=== PATIENT | female | born 1965 | race Caucasian/White ===

== ENCOUNTER 2020-02-11 08:41 | Outpatient (REF) | payer OTHER, SELFPAY | END 2020-02-11 08:42 | disposition home or self-care (01) | LOC: HO.HMGCLDS 08:41 | PROVIDERS: PCP Internal Medicine; Visit Provider Internal Medicine | DX: Z20.828 Contact with and (suspected) exposure to other viral communicable diseases (principal) | CPT/HCPCS: 87635 ==

== ENCOUNTER → 2020-02-19 12:40 | Outpatient (BNVA) | payer OTHER, SELFPAY | PROVIDERS: PCP Internal Medicine; Referring Provider Internal Medicine; Visit Provider Physician Assistant | DX: Z76.89 Persons encountering health services in other specified circumstances (principal) ==

== ENCOUNTER → 2020-03-22 08:13 | Outpatient (BNVA) | payer OTHER, SELFPAY | PROVIDERS: Visit Provider Dietitian, Registered | DX: Z76.89 Persons encountering health services in other specified circumstances (principal) ==

== ENCOUNTER 2020-04-01 15:41 | Outpatient (REF) | payer OTHER, SELFPAY | END 2020-04-01 15:42 | disposition home or self-care (01) | LOC: HO.LAB 15:41 | PROVIDERS: Visit Provider Internal Medicine | DX: Z20.828 Contact with and (suspected) exposure to other viral communicable diseases (principal) | CPT/HCPCS: C9803; U0003 ==

== ENCOUNTER 2020-06-24 08:35 | Outpatient (REF) | payer OTHER, SELFPAY | END 2020-06-24 08:36 | disposition home or self-care (01) | LOC: HO.LAB 08:35 | PROVIDERS: Visit Provider Internal Medicine | DX: Z20.822 Contact with and (suspected) exposure to COVID-19 (principal) | CPT/HCPCS: 36415; C9803; U0003; U0005 ==

== ENCOUNTER 2020-09-05 07:57 | Outpatient (REF) | payer OTHER, SELFPAY ==
--- NOTE | ~2020-09-05 | XR_ITS ---
EXAMINATION: BILATERAL AP KNEE AND LEFT KNEE 2 VIEWS. CLINICAL INFORMATION: Knee pain. COMPARISON: None TECHNIQUE: Left knee and bilateral AP knee standing 08/16/2016 FINDINGS: AP BILATERAL KNEE: There is severe loss of medial and lateral compartment joint space with moderate periarticular spurring lateral compartment left knee. Mild loss of medial and lateral compartment right knee joint space seen. LEFT KNEE: There is mild loss of patellofemoral compartment joint space with moderate inferior and mild lateral periarticular spurring. There are no loose body seen. There is minimal suprapatellar joint effusion. No fracture or dislocation. No abnormal soft tissue swelling. XR/XR knee LT 2V IMPRESSION: Advanced degenerative changes medial and lateral compartment and mild patellofemoral compartment degenerative arthritic changes left knee. There is no loose bodies or joint effusion. Minimal loss of medial and lateral compartment joint space right knee.
--- NOTE | ~2020-09-05 | XR_ITS ---
EXAMINATION: BILATERAL AP KNEE AND LEFT KNEE 2 VIEWS. CLINICAL INFORMATION: Knee pain. COMPARISON: None TECHNIQUE: Left knee and bilateral AP knee standing 08/16/2016 FINDINGS: AP BILATERAL KNEE: There is severe loss of medial and lateral compartment joint space with moderate periarticular spurring lateral compartment left knee. Mild loss of medial and lateral compartment right knee joint space seen. LEFT KNEE: There is mild loss of patellofemoral compartment joint space with moderate inferior and mild lateral periarticular spurring. There are no loose body seen. There is minimal suprapatellar joint effusion. No fracture or dislocation. No abnormal soft tissue swelling. XR/XR knee standing BI IMPRESSION: Advanced degenerative changes medial and lateral compartment and mild patellofemoral compartment degenerative arthritic changes left knee. There is no loose bodies or joint effusion. Minimal loss of medial and lateral compartment joint space right knee.
== END 2020-09-05 07:58 | disposition home or self-care (01) ==
LOC: HO.HOSX 07:57
PROVIDERS: Visit Provider Orthopaedic Surgery
DX: M17.12 Unilateral primary osteoarthritis, left knee (principal); M21.062 Valgus deformity, not elsewhere classified, left knee; M25.562 Pain in left knee
CPT/HCPCS: 73560; 73565

== ENCOUNTER → 2020-10-12 08:02 | Outpatient (BNVA) | payer OTHER, SELFPAY | PROVIDERS: Visit Provider Orthopaedic Surgery | DX: Z01.812 Encounter for preprocedural laboratory examination (principal); Z01.810 Encounter for preprocedural cardiovascular examination; M17.11 Unilateral primary osteoarthritis, right knee ==

== ENCOUNTER → 2020-11-10 11:11 | Outpatient (BNVA) | payer OTHER, SELFPAY | PROVIDERS: PCP Internal Medicine; Visit Provider Physician Assistant ==

== ENCOUNTER 2020-11-11 10:00 | Outpatient (RCR) | payer OTHER, SELFPAY ==
--- NOTE | 2020-11-07 15:25 | MHC.PT.EP ---
[facility] [place] Office [place] Office [place] Office [address] Stephen Irwin [address] [phone] F: [phone] F: [phone] F: [phone] F: [phone] Physical Therapy Plan of Care Date of Evaluation: Date of Surgery: Diagnosis: unilateral primary osteoarthritis, left knee Assessment: 55 y/o F referred to PT for prehab for L TKA on 11/22/20. Pt complains of pain and difficulty with walking, squatting, bending down, getting up/down from floor, and navigating stairs. Examination shows decreased hip/knee strength, decreased L knee ROM 0-18-114, decreased HS length, impaired gait mechanics with significant genu valgum, and poor squat mechanics. Recommend PT 1x/week for 2 weeks to address impairments, and implement HEP. Pt only able to attend 1 visit prior to surgery. Frequency and Duration: The patient will be seen 1x/week for 2 weeks Short Term Goals: Alf Goals: 1 week: 1. I with HEP 2. Pt will be able to verbalize importance of PT exercises/icing and expectations of therapy pre and post-TKA Treatment Plan: Modalities to reduce pain, spasms and effusion. Manual therapy to restore motion and function. Therapeutic exercise to improve strength and flexibility. Neuromuscular re-education for posture and balance. Therapeutic activities to return to functional activities of daily living. Electronically signed by: Gloria marshall PT Please sign and return to therapist. Thank you for your referral.
--- NOTE | 2020-11-11 11:16 | MHC.PT.DC ---
[facility] [place] Office [place] Office [place] Office [address] Stephen Irwin [address] [phone] F: [phone] F: [phone] F: [phone] F: [phone] Physical Therapy Discharge Report Diagnosis: unilateral primary osteoarthritis, left knee Date of Surgery: L TKA 11/22/20 Date of Evaluation: 11/07/20 Date of Discharge: 11/11/20 Treatments to Date: 2 Cancellations to Date: 0 No Shows to Date: 0 Discharge Status: Independent with HEP Discharge Summary: Reviewed HEP from initial evaluation and added a few more quad/hip exercises. Pt with good understanding of HEP and will perform every other day until surgery. Reviewed ice and stair management following surgery and pt with no further questions. Electronically signed by: Gloria Irving PT Please sign and return to therapist. Thank you for your referral.
== END 2020-11-11 11:17 | disposition home or self-care (01) ==
LOC: HO.PTCHIC 10:00
PROVIDERS: PCP Internal Medicine; Visit Provider Orthopaedic Surgery
DX: M17.12 Unilateral primary osteoarthritis, left knee (principal)
CPT/HCPCS: 97110; 97161

== ENCOUNTER 2020-11-22 07:11 | Inpatient (IN) | payer OTHER, SELFPAY ==
--- NOTE | 2020-10-13 07:55 | ECG_ITS ---
Test Reason : PREOP Z01.810 Blood Pressure : / mmHG Vent. Rate : 062 BPM Atrial Rate : 062 BPM P-R Int : 140 ms QRS Dur : 092 ms QT Int : 394 ms P-R-T Axes : 052 039 044 degrees QTc Int : 399 ms Normal sinus rhythm with sinus arrhythmia Normal ECG When compared with ECG of 03-AUG-2015 11:14, T wave amplitude has decreased in Lateral leads Referred By: Zohaib West Electronically Signed By:MACARENA BOLANOS
[2020-10-13 09:21] LABS: MANUAL DIFF FLAG NO
[2020-10-13 09:26] LABS: White Blood Count 5.9 X10*3/uL (4.8-10.8)
[2020-10-13 09:27] LABS: Basophils Absolute Auto 0.1 X10*3/uL (0.0-0.2); Basophils Percent Auto 1.2 % (0-2); Eosinophils Absolute Auto 0.2 X10*3/uL (0.0-0.4); Eosinophils Percent Auto 3.2 % (0-4); Hematocrit 41.8 % (37-47); Hemoglobin 12.8 g/dl (12.0-16.0); Imm Gran Abs Auto 0.01 X10*3/uL (0.00-0.03); Imm Gran Pct Auto 0.2 % (0.0-0.4); Lymphocytes Absolute Auto 1.9 X10*3/uL (1.2-4.9); Lymphocytes Percent Auto 31.1 % (20-40); Mean Corpuscular HGB Conc 30.6 g/dl (31.0-35.0); Mean Corpuscular Hemoglobin 28.8 pg (27.0-33.0); Mean Corpuscular Volume 94.1 fL (80-98); Mean Platelet Volume 10.7 fL (9.4-12.3); Monocytes Absolute Auto 0.5 X10*3/uL (0.1-1.2); Monocytes Percent Auto 7.7 % (2-11); Neutrophils Absolute Auto 3.4 X10*3/uL (2.0-8.3); Neutrophils Percent Auto 56.6 % (45-73); Platelet Count 276 X10*3/uL (160-400); Red Blood Count 4.44 X10*6/uL (4.20-5.50); Red Cell Distribution Width 13.2 % (11.0-16.0)
[2020-10-13 09:49] LABS: Anion Gap 10 (12-20); Blood Urea Nitrogen 11 mg/dL (9-16); Carbon Dioxide 27 mmol/L (22-29); Chloride 107 mmol/L (96-108); Estimated Glomerular Filt Rate > 60; Glucose Random 67 mg/dL (60-115); Potassium 4.3 mmol/L (3.3-5.1); Sodium 140 mmol/L (135-145)
--- NOTE | 2020-11-10 11:52 | P.CONAN_ITS ---
Documented by User: Melly Rodriguez 11/21/20 08:21 HPI - Anesthesia Eval Consult details Narrative: 55yo F for Left Knee Replacement Total PCP cleared [facility] Active Problems Active Problems: All Active Problems (Updated 11/01/20 @ 08:32 by Neena Padilla PA-C) Osteoarthritis of left knee (Acute) Internal derangement of left knee (Acute) Pre-op evaluation (Acute) Osteoarthritis of right knee (Acute) Physical exam, annual (Acute) S/P gastric bypass (Acute) BMI 30.0-30.9,adult (Acute) Obesity (BMI 30-39.9) (Acute) Malabsorption due to intolerance, not elsewhere classified (Acute) Past Medical History Medical History Anastomotic ulcer BMI 30.0-30.9,adult Bone spur of left foot COVID-19 vaccine series completed Cyst of left kidney Hematuria Malabsorption due to intolerance, not elsewhere classified Obesity (BMI 30-39.9) PONV (postoperative nausea and vomiting) Shingles Family History Family History Father Cataract Skin cancer Mother HTN (hypertension) Anxiety Depression Obesity Smoker Sister Breast cancer Brother No problems noted. Sister No problems noted. Sister No problems noted. Sister No problems noted. Sister No problems noted. Daughter No problems noted. Daughter No problems noted. Daughter No problems noted. Other Mental health disorder Family history of problems with anesthesia: No Surgical History Surgical History H/O arthroscopy of left knee H/O elbow surgery H/O tubal ligation H/O: hysterectomy S/P gastric bypass Fountain teeth extracted History of Problems with Anesthesia: No (PONV after gastric bypass) Social History Social History Housing: House Are you a primary nurse wound care to a significant other at home: No Do you presently have visiting nurse or other home services: No Alcohol intake: never Patient Tobacco Use Status: Never used Tobacco Second Hand Smoke Exposure: No Use of substances other than those prescribed or required for medical reasons: No Have you been hit, kicked, punched, or otherwise hurt by someone within the past year? 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 Narrative Narrative: No recent illness No CP/SOB with >4 mets Meds Allergies Allergy/AdvReac Type Severity Reaction Status Date / Time Iodinated Contrast Media Allergy Intermediate HIVES Verified 11/10/20 11:51 [IV CONTRAST] iodine [IODINE] Allergy Intermediate SKIN RASH, Verified 11/10/20 11:51 redness, welts, redness IVP Dye Allergy Unknown redness, Verified 11/10/20 11:51 welts Home Medications Medication Instructions Recorded Confirmed Last Taken Type cholecalciferol (vitamin D3) 50 100 mcg PO DAILY 02/19/20 11/09/20 Unknown History mcg (2,000 unit) tablet aawzduaa-[id number]-[id number] 45 mg-folic 1 cap PO DAILY 02/19/20 11/09/20 Unknown History acid 800 mcg-vit K 120 mcg capsule pantoprazole 40 mg tablet,delayed 40 mg PO BID tab 06/01/20 11/09/20 Unknown History release Exam Exam Date and Time: November 10, 2020 1152 Pertinent Lab Results Pertinent Lab Results: Lab Results 10/13/20 10/13/20 11/10/20 Range/Units 07:50 07:50 12:50 WBC 5.9 (4.8-10.8) X10*3/uL RBC 4.44 (4.20-5.50) X10*6/uL Hgb 12.8 (12.0-16.0) g/dl Hct 41.8 (37-47) % MCV 94.1 (80-98) fL MCH 28.8 (27.0-33.0) pg MCHC 30.6 L (31.0-35.0) g/dl RDW 13.2 (11.0-16.0) % Plt Count 276 (160-400) X10*3/uL MPV 10.7 (9.4-12.3) fL Immature Gran % (Auto) 0.2 (0.0-0.4) % Neut % (Auto) 56.6 (45-73) % Lymph % (Auto) 31.1 (20-40) % [place] % (Auto) 7.7 (2-11) % Eos % (Auto) 3.2 (0-4) % Baso % (Auto) 1.2 (0-2) % Lymph # (Auto) 1.9 (1.2-4.9) X10*3/uL [place] # (Auto) 0.5 (0.1-1.2) X10*3/uL Eos # (Auto) 0.2 (0.0-0.4) X10*3/uL Baso # (Auto) 0.1 (0.0-0.2) X10*3/uL Abs Immat Gran (auto) 0.01 (0.00-0.03) X10*3/uL Absolute Neuts (auto) 3.4 (2.0-8.3) X10*3/uL Absolute Nucleated RBC 0.000 (0.0-0.012) X10*3/uL Nucleated RBC % (auto) 0.0 (0.0-0.2) /100WBC Sodium 140 (135-145) mmol/L Potassium 4.3 (3.3-5.1) mmol/L Chloride 107 (96-108) mmol/L Carbon Dioxide 27 (22-29) mmol/L Anion Gap 10 L (12-20) BUN 11 (9-16) mg/dL Creatinine 0.67 (0.5-1.4) mg/dL Estim Creat Clear Calc TNP Estimated GFR > 60 Random Glucose 67 (60-115) mg/dL Calcium 9.0 (8.4-10.2) mg/dL Nasal Screen MRSA (PCR) (Negative) Nasal S. aureus Screen (Negative) Nasal MRSA/S.aureus Interp Blood Type A Positive Antibody Screen NEGATIVE 11/10/20 Range/Units Unknown WBC (4.8-10.8) X10*3/uL RBC (4.20-5.50) X10*6/uL Hgb (12.0-16.0) g/dl Hct (37-47) % MCV (80-98) fL MCH (27.0-33.0) pg MCHC (31.0-35.0) g/dl RDW (11.0-16.0) % Plt Count (160-400) X10*3/uL MPV (9.4-12.3) fL Immature Gran % (Auto) (0.0-0.4) % Neut % (Auto) (45-73) % Lymph % (Auto) (20-40) % [place] % (Auto) (2-11) % Eos % (Auto) (0-4) % Baso % (Auto) (0-2) % Lymph # (Auto) (1.2-4.9) X10*3/uL [place] # (Auto) (0.1-1.2) X10*3/uL Eos # (Auto) (0.0-0.4) X10*3/uL Baso # (Auto) (0.0-0.2) X10*3/uL Abs Immat Gran (auto) (0.00-0.03) X10*3/uL Absolute Neuts (auto) (2.0-8.3) X10*3/uL Absolute Nucleated RBC (0.0-0.012) X10*3/uL Nucleated RBC % (auto) (0.0-0.2) /100WBC Sodium (135-145) mmol/L Potassium (3.3-5.1) mmol/L Chloride (96-108) mmol/L Carbon Dioxide (22-29) mmol/L Anion Gap (12-20) BUN (9-16) mg/dL Creatinine (0.5-1.4) mg/dL Estim Creat Clear Calc Estimated GFR Random Glucose (60-115) mg/dL Calcium (8.4-10.2) mg/dL Nasal Screen MRSA (PCR) NEGATIVE (Negative) Nasal S. aureus Screen NEGATIVE (Negative) Nasal MRSA/S.aureus Interp SEE NOTE Blood Type Antibody Screen Narrative Narrative: EKG 09/2020 Vent. Rate : 062 BPM Atrial Rate : 062 BPM P-R Int : 140 ms QRS Dur : 092 ms QT Int : 394 ms P-R-T Axes : 052 039 044 degrees QTc Int : 399 ms Normal sinus rhythm with sinus arrhythmia Normal ECG When compared with ECG of 03-AUG-2015 11:14, T wave amplitude has decreased in Lateral leads Airway Mallampati Class: II TM Dist: >3cm Neck ROM: Full Loose/Missing/Broken Teeth: Yes (Crowns throughout including #9, many missing) Heart: RRR Lungs: CTAB Assessment and Plan Assessment Anesthesia Assessment: Anesthesia Plan Discussed and PAT Visit Documented by User: Temo Celeste MD 11/22/20 08:16 PMFSH Past Medical History Medical History Anastomotic ulcer BMI 30.0-30.9,adult Bone spur of left foot COVID-19 vaccine series completed Cyst of left kidney Hematuria Malabsorption due to intolerance, not elsewhere classified Obesity (BMI 30-39.9) PONV (postoperative nausea and vomiting) Shingles Family History Family History Father Cataract Skin cancer Mother HTN (hypertension) Anxiety Depression Obesity Smoker Sister Breast cancer Brother No problems noted. Sister No problems noted. Sister No problems noted. Sister No problems noted. Sister No problems noted. Daughter No problems noted. Daughter No problems noted. Daughter No problems noted. Other Mental health disorder Surgical History Surgical History H/O arthroscopy of left knee H/O elbow surgery H/O tubal ligation H/O: hysterectomy S/P gastric bypass Fountain teeth extracted Social History Social History Housing: House Are you a primary nurse wound care to a significant other at home: No Do you presently have visiting nurse or other home services: No Alcohol intake: never Patient Tobacco Use Status: Never used Tobacco Second Hand Smoke Exposure: No Use of substances other than those prescribed or required for medical reasons: No Have you been hit, kicked, punched, or otherwise hurt by someone within the past year? 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 Allergies Allergy/AdvReac Type Severity Reaction Status Date / Time Iodinated Contrast Media Allergy Intermediate HIVES Verified 11/10/20 11:51 [IV CONTRAST] iodine [IODINE] Allergy Intermediate SKIN RASH, Verified 11/10/20 11:51 redness, welts, redness IVP Dye Allergy Unknown redness, Verified 11/10/20 11:51 welts Home Medications Medication Instructions Recorded Confirmed Last Taken Type cholecalciferol (vitamin D3) 50 100 mcg PO DAILY 02/19/20 11/09/20 Unknown History mcg (2,000 unit) tablet urmdfomi-hkzrqqqj-gdub 45 mg-folic 1 cap PO DAILY 02/19/20 11/09/20 Unknown History acid 800 mcg-vit K 120 mcg capsule pantoprazole 40 mg tablet,delayed 40 mg PO BID tab 06/01/20 11/09/20 Unknown History release Assessment and Plan Assessment Anesthesia Assessment: Anesthesia Plan Discussed and Chart Reviewed Final Anesthetic Review NPO: Yes ASA Class: II Final Preanesthetic Review: No Changes in Pt Med Stat, Meds/Allgs Chart Reviewed, Consent Obtained/Reviewed and Anes Risks/Benef Reviewed Patient Risk: Low Procedure Risk: Intermediate Anesthetic Plan Anesthetic Plan: GA and Regional Block Disposition: Standard PACU
[2020-11-10 11:59] VITALS: BP 111/67; PULSE 68; RESP 20; O2SAT 98; BMI 33.6
[2020-11-11 10:22] LABS: MRSA Nasal PCR NEGATIVE (Negative); SA Nasal PCR NEGATIVE (Negative)
[2020-11-22] VITALS (18 sets, daily range): BP systolic 92–142; BP diastolic 45–64; PULSE 70–103; RESP 14–20; TEMP 36.1–37.3; O2SAT 96–100
--- NOTE | ~2020-11-22 | XR_ITS ---
EXAMINATION: XR KNEE, LEFT CLINICAL INFORMATION: Postop left knee. COMPARISON: Standing AP knees and left knee 09/05/2020. TECHNIQUE: Left knee is imaged portably in 3 views. FINDINGS: There has been total knee arthroplasty. The hardware is intact in expected alignment. There is no fracture dislocation or destructive process. There are overlying skin aldo, suprapatellar effusion, and some subcutaneous emphysema as expected. XR/XR knee LT 2V IMPRESSION: Status post total knee arthroplasty.
--- NOTE | 2020-11-22 06:36 | PC.NURSE ---
Pt states allergy to Iodine with reaction of hives/rash. Providone Iodine nasal swabs ordered for preop. Nasal swabs not done due to allergy/reaction. aware.
[2020-11-22] MEDS: Lactated Ringers 1,000 ML 100 ML IVCONT (07:02)
[2020-11-22 07:10] LABS: COVID-19 Test Negative (Negative); IDNOW Serial# 08D9AD1C
--- NOTE | 2020-11-22 07:25 | MHC.SHP ---
Pre-Procedural Eval Section A Date of Service: 11/22/20 The patient is an INPATIENT: No Changes since office visit: Yes Patient answered all questions; No Cold of Flu in the past 2 weeks, No New Medical Problems and No Changes in Medication The History & Physical has been completed within 30 days and I have reviewed it.: Yes Section B Chief Complaint: Left Total Knee Replacement Allergies: Allergies Allergy/AdvReac Type Severity Reaction Status Date / Time Iodinated Contrast Media Allergy Intermediate HIVES Verified 11/10/20 11:51 [IV CONTRAST] iodine [IODINE] Allergy Intermediate SKIN RASH, Verified 11/10/20 11:51 redness, welts, redness IVP Dye Allergy Unknown redness, Verified 11/10/20 11:51 welts Plan I have reviewed the history and physical and performed a pertinent physical examination on my patient. No changes have occurred unless specified.
--- NOTE | 2020-11-22 09:33 | PM.OP ---
Brief Operative Note Date of Service: 11/22/20 Pre-op diagnosis: left knee OA Post-op diagnosis: same Procedure: Left TKA Implants: Karina mcclendon press fit Surgeon: Zohaib West MD Anesthesia: GETA and regional Was an Wellfield Technician used for this Procedure?: Yes Wellfield Technician: Neena Padilla Estimated blood loss (mL): 150 IV fluids (mL): 1,000 Pathology: other Condition: stable Disposition: PACU
--- NOTE | 2020-11-22 09:35 | P.OP_ITS ---
Operative Note Operative Note Date of Service: 11/22/20 Narrative: Pre-op diagnosis: left knee OA Post-op diagnosis: same Procedure: Left TKA Implants: Karina mcclendon press fit Surgeon: Zohaib West MD Anesthesia: GETA and regional Was an Wastewater Analyst Lab Analyst used for this Procedure?: Yes Wastewater Analyst Lab Analyst: Neena Padilla Estimated blood loss (mL): 150 IV fluids (mL): 1,000 Pathology: other Condition: stable Disposition: PACU Procedure in detail: Patient was brought to the operating room and prepped and draped in standard sterile fashion. A time-out was called to identify proper site proper procedure proper surgeon IV antibiotics were administered. 1 g of IV tranexamic acid was also administered. She had a 10 deg flexion contracture and was in approximately 15 deg of valgus. I began by making a midline incision to the retinaculum and performed a medial parapatellar arthrotomy. The patella was translated laterally and the knee was flexed up. The lateral compartment was eburnated. I performed a medial peel and resected the infrapatellar fat pad. Marin's line was then used to drill my intramedullary femoral guide and my distal femur cut was made in 5 degrees of valgus. I then measured a # 5___ femur and placed my cutting guide and made my anterior posterior and chamfer cuts protecting the soft tissues at all times. Once I was satisfied with my cut I turned my attention to the tibia. I removed the meniscus and , using an external cutting guide, in line with the tibial crest and the third ray, I made my distal tibial cut ( 3 deg slope) while protecting the PCL the posterior soft tissues at all times. An extension block was used to confirm appropriate amount of bony resection. I then sized a #_5__ tibia and once I was satisfied that there was good tibial coverage I placed my trial and with the trial femur in place took the knee through range of motion. I was satisfied with the extension and flexion as well as the stability at 0, 30 and 90 degrees. I then turned my attention to the patella where I removed 1 cm from the undersurface of the patella and then trialed a _29a__ patellar button. Again the knee was taken through range of motion I was satisfied with the tracking. I returned to the femur and drilled my femoral lug holes and prepared the tibia. Femoral bone plug was then placed and the knee was irrigated copiously. I then press fit the patella, tibia and femur in standard fashion. I trialed different inserts until I selected a #_9___ insert. The final insert was placed and a 1 gm local TXA was performed. Aquamantys was used for hemostasis in the meniscal beds. The knee was then closed with a running Quill suture, a 3 0 Vicryl and aldo on the skin. Patient was then placed in sterile dressing and brought to recovery room in stable condition there were no known complications.
[2020-11-22] MEDS: HYDROmorphone HCl 0.5 MG/0.5 ML SYRINGE IVPUSH ×4 (09:55→10:25)
[2020-11-22] MEDS: Dextrose 5 % and 0.45 % NaCl 1,000 ML 80 ML IVCONT (11:16)
[2020-11-22] MEDS: HYDROmorphone HCl 0.5 MG/0.5 ML SYRINGE 0.25 MG IVPUSH ×2 (14:04→22:46)
--- NOTE | 2020-11-22 16:20 | P.CONHOSP_ITS ---
History of Present Illness Data of Consult Service Date: 11/22/20 Primary Care Provider: Fitz Ballard MD HPI Reason for consult: Medical Comanagement 55yo F s/p L TKA for OA today, medicine consultation requested for mgmt of comorbid conditions, which are obesity s/p gastric bypass complicated by anastomatic ulcer. No cardiopulmonary conditions. Takes bariatric multivitamin, bid PPI, and sucralfate. Denies chest pain/dyspnea/abd pain/nausea/vomiting; c/o R knee pain postop No hx of VTE. Review of Systems Review of Systems: Yes all other systems are reviewed and are negative [facility] Medical History Anastomotic ulcer BMI 30.0-30.9,adult Bone spur of left foot COVID-19 vaccine series completed Cyst of left kidney Hematuria Malabsorption due to intolerance, not elsewhere classified Obesity (BMI 30-39.9) PONV (postoperative nausea and vomiting) Shingles Family History Father Cataract Skin cancer Mother HTN (hypertension) Anxiety Depression Obesity Smoker Sister Breast cancer Brother No problems noted. Sister No problems noted. Sister No problems noted. Sister No problems noted. Sister No problems noted. Daughter No problems noted. Daughter No problems noted. Daughter No problems noted. Other Mental health disorder Surgical History H/O arthroscopy of left knee H/O elbow surgery H/O tubal ligation H/O: hysterectomy S/P gastric bypass [place] teeth extracted Social History Household Members: Spouse Housing: House Are you a primary medication care manager to a significant other at home: No Do you presently have visiting nurse or other home services: No Alcohol intake: never Patient Tobacco Use Status: Never used Tobacco Second Hand Smoke Exposure: No Use of substances other than those prescribed or required for medical reasons: No Have you been hit, kicked, punched, or otherwise hurt by someone within the past year? 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 Meds Allergies Allergy/AdvReac Type Severity Reaction Status Date / Time Iodinated Contrast Media Allergy Intermediate HIVES Verified 11/10/20 11:51 [IV CONTRAST] iodine [IODINE] Allergy Intermediate SKIN RASH, Verified 11/10/20 11:51 redness, welts, redness IVP Dye Allergy Unknown redness, Verified 11/10/20 11:51 welts Active Medications: Current Medications Generic Name Dose Route Start Last Admin Trade Name Freq PRN Reason Stop Dose Admin Acetaminophen 650 mg 11/22/20 13:29 Acetaminophen 325 Mg Tablet PO Q6H PRN Pain, Mild (Pain Scale 1-3) Docusate Sodium 100 mg 11/22/20 21:00 Docusate Sodium 100 Mg Capsule PO BID BECKY Enoxaparin Sodium 40 mg 11/23/20 09:00 Enoxaparin Sodium 40 Mg/0.4 Ml Syringe SUBCUT Q24H BECKY Hydromorphone HCl 0.25 mg 11/22/20 13:29 11/22/20 14:04 Hydromorphone Hcl 0.5 Mg/0.5 Ml Syringe IVPUSH 0.25 mg Q4H PRN Administration Pain, Severe (Pain Scale 7-10) Dextrose/Sodium Chloride 1,000 mls @ 80 mls/hr 11/22/20 11:30 11/22/20 11:16 D51/2ns IVCONT 80 mls/hr .[id number] BECKY Administration Naloxone HCl 0.2 mg 11/22/20 13:29 Naloxone Hcl 0.4 Mg/Ml Vial IVPUSH Q2M PRN Excessive sedation or RR < 8 Non-Formulary Medication 1 cap 11/23/20 09:00 Zgiiopoghwyf-Yai-Iykv-Fa-Vit K [Bariatric Multivitamins] PO DAILY BECKY Non-Formulary Medication 40 mg 11/22/20 21:00 Pantoprazole PO BID BECKY Ondansetron HCl 4 mg 11/22/20 13:29 Ondansetron Hcl 4 Mg/2 Ml Vial IVPUSH Q8H PRN Nausea and Vomiting Oxycodone HCl 5 mg 11/22/20 13:29 Oxycodone Hcl Immed Release 5 Mg Tablet PO Q4H PRN Pain, Moderate (Pain Scale 4-6 Oxycodone HCl 10 mg 11/22/20 21:00 Oxycodone Hcl Er 10 Mg Tab.Er.12h PO BID BECKY Sodium Chloride 3 ml 11/22/20 16:00 0.9 % Sodium Chloride Flush 3 Ml Syringe IVFLUSH QSHIFT BECKY Sucralfate gm 11/22/20 21:00 Sucralfate Oral Suspension 1 Gm/10 Ml Oral.Susp PO BID [facility] Home Medications Medication Instructions Recorded Confirmed Last Taken Type cholecalciferol (vitamin D3) 50 100 mcg PO DAILY 02/19/20 11/09/20 Unknown History mcg (2,000 unit) tablet [id number]-qeeznipd-dffg 45 mg-folic 1 cap PO DAILY 02/19/20 11/09/20 Unknown History acid 800 mcg-vit K 120 mcg capsule pantoprazole 40 mg tablet,delayed 40 mg PO BID tab 06/01/20 11/09/20 Unknown History release Physical Exam Vital Signs and Narrative: Vital Signs: Last Vital Signs Temp 96.9 F 11/22/20 12:43 Pulse 70 11/22/20 14:11 Resp 18 11/22/20 12:43 BP 98/49 L 11/22/20 14:11 Pulse Ox 98 11/22/20 14:11 Body Mass Index 33.6 Gen: in no acute distress HEENT: sclera anicteric, moist mucus membranes Neck: supple Lungs: clear to auscultation bilaterally Heart: regular rate and rhythm, no murmurs Abd: soft, non-tender, non-distended Ext: no edema, L knee with dressing Skin: warm/well-perfused Neuro: alert and oriented x3, no focal findings Psych: appropriate affect Results Labs CBC and Chem 7: 10/13/20 07:50 10/13/20 07:50 Labs: Laboratory Results - last 24 hr 11/22/20 06:15 COVID-19 (YANIRA) Negative COVID-19 Clin Com See Note Imaging Radiologist's Impressions: Impressions Knee X-Ray 11/22/20 10:41 IMPRESSION: Status post total knee arthroplasty. Assessment and Plan (1) S/P gastric bypass: Status: Acute 55yo F with obesity s/p gastric bypass complicated by anastomotic ulcer, POD #0 L TKA for OA, medicine consultation for management of comorbid conditions. Would continue her home meds- vit D, bariatric multivitamin, PPI, and sucralfate. Pain control + VTE ppx as per Orthopedics team. Signing off this consult for now but please call if any new issues arise.
[2020-11-22] MEDS: oxyCODONE HCl Immed Release 5 MG TABLET PO (16:21)
[2020-11-22] MEDS: 0.9 % Sodium Chloride Flush 3 ML SYRINGE IVFLUSH (16:22)
[2020-11-22] MEDS: Docusate Sodium 100 MG CAPSULE PO (20:07)
[2020-11-22] MEDS: Sucralfate Oral Suspension 1 GM/10 ML ORAL.SUSP PO (20:07)
[2020-11-22] MEDS: Omeprazole 20 MG CAPSULE.DR PO (20:08)
[2020-11-22] MEDS: oxyCODONE HCl ER 10 MG TAB.ER.12H PO (20:08)
[2020-11-23] VITALS (8 sets, daily range): BP systolic 103–118; BP diastolic 48–58; PULSE 79–118; RESP 16–18; TEMP 36.6–37.1; O2SAT 97–98
[2020-11-23] MEDS: Dextrose 5 % and 0.45 % NaCl 1,000 ML 80 ML IVCONT ×2 (00:30→13:55)
[2020-11-23] MEDS: oxyCODONE HCl Immed Release 5 MG TABLET PO ×4 (00:38→18:59)
[2020-11-23] MEDS: HYDROmorphone HCl 0.5 MG/0.5 ML SYRINGE 0.25 MG IVPUSH ×4 (02:54→17:52)
[2020-11-23 06:24] LABS: MANUAL DIFF FLAG NO
[2020-11-23 06:37] LABS: Basophils Percent Auto 0.2 % (0-2); Eosinophils Percent Auto 0.3 % (0-4); Hematocrit 30.7 % (37-47); Hemoglobin 9.6 g/dl (12.0-16.0); Imm Gran Abs Auto 0.03 X10*3/uL (0.00-0.03); Imm Gran Pct Auto 0.3 % (0.0-0.4); Lymphocytes Absolute Auto 1.5 X10*3/uL (1.2-4.9); Lymphocytes Percent Auto 14.7 % (20-40); Mean Corpuscular HGB Conc 31.3 g/dl (31.0-35.0); Mean Corpuscular Hemoglobin 29.3 pg (27.0-33.0); Mean Corpuscular Volume 93.6 fL (80-98); Mean Platelet Volume 10.5 fL (9.4-12.3); Monocytes Absolute Auto 0.9 X10*3/uL (0.1-1.2); Monocytes Percent Auto 9.2 % (2-11); Neutrophils Absolute Auto 7.5 X10*3/uL (2.0-8.3); Neutrophils Percent Auto 75.3 % (45-73); Platelet Count 238 X10*3/uL (160-400); Red Blood Count 3.28 X10*6/uL (4.20-5.50); Red Cell Distribution Width 13.5 % (11.0-16.0); White Blood Count 9.9 X10*3/uL (4.8-10.8)
[2020-11-23 06:50] LABS: Anion Gap 8 (12-20); Blood Urea Nitrogen 10 mg/dL (9-16); Calcium 8.3 mg/dL (8.4-10.2); Carbon Dioxide 29 mmol/L (22-29); Chloride 104 mmol/L (96-108); Creatinine Clr Calc Pharmacy 117.9; Estimated Glomerular Filt Rate > 60; Glucose Fasting 118 mg/dL (60-99); Potassium 3.9 mmol/L (3.3-5.1); Sodium 137 mmol/L (135-145)
--- NOTE | 2020-11-23 07:41 | PM.PNORT ---
Subjective Subjective Date of Service: 11/23/20 Interval history: POD1 s/p left total knee arthroplasty with Dr. West. No overnight events. Pain is well managed. Denies CP, SOB, abd pain. Physical Exam Vital Signs: Vital Signs: Last Vital Signs Temp 97.9 F 11/23/20 07:38 Pulse 85 11/23/20 07:38 Resp 17 11/23/20 07:38 BP 110/56 L 11/23/20 07:38 Pulse Ox 97 11/23/20 07:38 Body Mass Index 33.6 Const: General: cooperative, healthy appearing and no acute distress Resp: Effort & Inspection: normal respiratory effort and able to speak in complete sentences Cardio: Rate: regular rate Peripheral pulses: Peripheral pulses 2+ throughout GI: Palpation (GI): Soft to palpation Skin: Lesions: no lesions Rashes: no rashes Extrem: Other: Left knee no ecchymosis, redness, or drainage. Aquacel is clean. dry, and intact. Patient is able to dorsiflex and plantarflex. Pedal pulse intact. Procedures Date of Service Date of Service: 11/23/20 Progress Note: A&P Assessment and plan (1) Status post total knee replacement, left: Status: Acute Assessment and Plan: Continue pain mgmnt Begin Lovenox for dvt ppx begin PT for LTKA Dispo planning-Pending PT eval, pain mgmnt Fall Risk Details Current Medications: Current Medications Generic Name Dose Route Start Last Admin Trade Name Freq PRN Reason Stop Dose Admin Acetaminophen 650 mg 11/22/20 13:29 Acetaminophen 325 Mg Tablet PO Q6H PRN Pain, Mild (Pain Scale 1-3) Docusate Sodium 100 mg 11/22/20 21:00 11/22/20 20:07 Docusate Sodium 100 Mg Capsule PO 100 mg BID BECKY Administration Enoxaparin Sodium 40 mg 11/23/20 09:00 Enoxaparin Sodium 40 Mg/0.4 Ml Syringe SUBCUT Q24H BECKY Hydromorphone HCl 0.25 mg 11/22/20 13:29 11/23/20 02:54 Hydromorphone Hcl 0.5 Mg/0.5 Ml Syringe IVPUSH 0.25 mg Q4H PRN Administration Pain, Severe (Pain Scale 7-10) Dextrose/Sodium Chloride 1,000 mls @ 80 mls/hr 11/22/20 11:30 11/23/20 00:30 D51/2ns IVCONT 80 mls/hr .[id number] BECKY Administration Multivitamins/Minerals 1 tab 11/23/20 09:00 Multivitamin With Minerals Tablet PO DAILY BECKY Naloxone HCl 0.2 mg 11/22/20 13:29 Naloxone Hcl 0.4 Mg/Ml Vial IVPUSH Q2M PRN Excessive sedation or RR < 8 Omeprazole 20 mg 11/22/20 21:00 11/22/20 20:08 Omeprazole 20 Mg Capsule.Dr PO 20 mg BID BECKY Administration Ondansetron HCl 4 mg 11/22/20 13:29 Ondansetron Hcl 4 Mg/2 Ml Vial IVPUSH Q8H PRN Nausea and Vomiting Oxycodone HCl 5 mg 11/22/20 13:29 11/23/20 06:41 Oxycodone Hcl Immed Release 5 Mg Tablet PO 5 mg Q4H PRN Administration Pain, Moderate (Pain Scale 4-6 Oxycodone HCl 10 mg 11/22/20 21:00 11/22/20 20:08 Oxycodone Hcl Er 10 Mg Tab.Er.12h PO 10 mg BID BECKY Administration Sodium Chloride 3 ml 11/22/20 16:00 11/23/20 00:32 0.9 % Sodium Chloride Flush 3 Ml Syringe IVFLUSH Not Given QSHIFT BECKY Sucralfate 1 gm 11/22/20 21:00 11/22/20 20:07 Sucralfate Oral Suspension 1 Gm/10 Ml Oral.Susp PO 1 gm BID BECKY Administration Time Spent With Patient Time: Total time spent is greater than 50% in coordination of care (as documented) at patient's floor/unit and/or counseling patient: Time with patient: less than 15 minutes Quality Stroke Does the patient have a stroke diagnosis?: No VTE Prior VTE?: No VTE Risk Level:: Surgical - high VTE Device Contraindication: N/A - Device Ordered VTE Drug Contraindication: N/A - Med Ordered
--- NOTE | 2020-11-23 08:39 | HO.POSTANES ---
Post Anesthesia Evaluation Post Anesthesia Evaluation Vital Signs: Vital Signs Temp Pulse Resp BP Pulse Ox 11/23/20 07:38 97.9 F 85 17 110/56 L 97 11/23/20 02:54 16 11/23/20 02:53 98 F 79 16 105/52 L 98 11/22/20 22:55 97.8 F 82 16 101/53 L 99 11/22/20 20:56 99 F 88 14 92/51 L 98 Anesthesia: General Mental Status: Awake Pain Control: Satisfactory Nausea/Vomiting: None Hydration: Adequate Anesthesia-Related Issues: No Anes. Related Issues
[2020-11-23] MEDS: Sucralfate Oral Suspension 1 GM/10 ML ORAL.SUSP PO ×2 (08:52→21:35)
[2020-11-23] MEDS: 0.9 % Sodium Chloride Flush 3 ML SYRINGE IVFLUSH (08:52)
[2020-11-23] MEDS: Docusate Sodium 100 MG CAPSULE PO ×2 (08:52→21:35)
[2020-11-23] MEDS: Omeprazole 20 MG CAPSULE.DR PO ×2 (08:52→21:35)
[2020-11-23] MEDS: Enoxaparin Sodium 40 MG/0.4 ML SYRINGE SUBCUT (08:53)
[2020-11-23] MEDS: oxyCODONE HCl ER 10 MG TAB.ER.12H PO ×2 (08:53→21:35)
[2020-11-23] MEDS: Acetaminophen 325 MG TABLET 650 MG PO ×2 (12:02→18:59)
--- NOTE | 2020-11-23 14:41 | MHC.CM.PN ---
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 REVIEWED WITH HER AGENCY CHOICES AND [facility] WITH WITH [facility] FOR NURSING FOR [place] LOVENOX AND HOME PT TO START SERVICES THE DAY AFTER SHE IS DISCHARGED , PCP DR ANGELIC QUILES PATIENT TO CALL FOR POST HOSPITAL DISCHARGE FOLLOW UP ORTHOPEDIC SURGICAL FOLLOW UP PER DISCHARGE INSTRUCTIONS TRANSPORTATION FAMILY
[2020-11-24] VITALS: BP 119/73; PULSE 98; RESP 16; TEMP 36.1; O2SAT 98
[2020-11-24] MEDS: HYDROmorphone HCl 0.5 MG/0.5 ML SYRINGE 0.25 MG IVPUSH ×2 (00:50→06:46)
[2020-11-24] MEDS: Dextrose 5 % and 0.45 % NaCl 1,000 ML 80 ML IVCONT (00:52)
[2020-11-24] MEDS: oxyCODONE HCl Immed Release 5 MG TABLET PO ×2 (03:33→09:58)
[2020-11-24 04:00] VITALS: BP 104/59; PULSE 70; RESP 16; TEMP 36.7; O2SAT 99
[2020-11-24 07:07] VITALS: BP 149/72; PULSE 95; RESP 17; TEMP 36.4; O2SAT 93
[2020-11-24 07:13] LABS: Anion Gap 10 (12-20); Blood Urea Nitrogen 5 mg/dL (9-16); Calcium 7.9 mg/dL (8.4-10.2); Carbon Dioxide 26 mmol/L (22-29); Chloride 105 mmol/L (96-108); Creatinine Clr Calc Pharmacy 140.3; Estimated Glomerular Filt Rate > 60; Glucose Fasting 113 mg/dL (60-99); Potassium 3.6 mmol/L (3.3-5.1); Sodium 137 mmol/L (135-145)
--- NOTE | 2020-11-24 08:03 | PM.DS ---
DS: Providers Provider Date of Service: 11/24/20 Date of admission: 11/22/20 07:11 Primary care physician: Fitz Case MD Consults: 11/22/20 13:29 Consult to Hospitalist Routine Consulting Provider: Hospitalist Reason For Exam: s/p Lt tka, medical management DS: Diagnosis Discharge Diagnosis (1) Status post total knee replacement, left: Status: Acute DS: Medications Discharge Medications Home Medications: Home Medications Medication Instructions Recorded Confirmed cholecalciferol (vitamin D3) 50 100 mcg PO DAILY 02/19/20 11/09/20 mcg (2,000 unit) tablet jppwbwsa-clhkdols-yiud 45 mg-folic 1 cap PO DAILY 02/19/20 11/09/20 acid 800 mcg-vit K 120 mcg capsule (Bariatric Multivitamins) pantoprazole 40 mg tablet,delayed 40 mg PO BID tab 06/01/20 11/09/20 release Previous Rx's Medication Instructions Recorded sucralfate 100 mg/mL oral 10 ml PO BID #420 ml 04/15/20 suspension walker #1 ea 10/12/20 Raised toilet seat #1 ea 11/10/20 oxycodone 5 mg tablet 5 mg PO Q4H PRN 7 Days #42 tab 11/24/20 DS: Summary Hospital Course Hospital Course: 55-year-old female presented to the office with ongoing left knee pain. She was found have osteoarthritis. She had failed all conservative measures and agreed to move forward with left total knee arthroplasty. The patient underwent a successful left total knee arthroplasty, was transferred to PACU and then to the floor to recover. During their stay, their vitals were stable, afebrile at 97.6. Labs were unremarkable, H/H 9.6/30.7. POD 1 she was started on Lovenox for DVT ppx, they also received physical therapy services twice a day. Prior to discharge, their dressing was change, incision clean dry and intact, new Aquacel dressing applied and the plan was to be discharged home with VNA services Time Spent with Patient Time attestation: Total time spent providing and/or coordinating discharge services: Discharge coordination time: Less than 30 minutes Quality: Stroke Does the patient have a stroke diagnosis?: No Physical Exam Vital Signs: Vital Signs: Last Vital Signs Temp 97.6 F 11/24/20 07:07 Pulse 95 11/24/20 07:07 Resp 17 11/24/20 07:07 BP 149/72 H 11/24/20 07:07 Pulse Ox 93 11/24/20 07:07 Body Mass Index 33.6 Const: General: cooperative, healthy appearing and no acute distress Resp: Effort & Inspection: normal respiratory effort and able to speak in complete sentences Cardio: Rate: regular rate Peripheral pulses: Peripheral pulses 2+ throughout GI: Palpation (GI): Soft to palpation Skin: General skin exam: no rashes or lesions noted Extrem: Other: incision clean dry and intact. Maninder intact. No erythema or joint effusion. Calf supple nontender. Neurovascularly intact. DS: Data Data Completed and Pending Pending studies at discharge: Pending at discharge 11/22/20 09:14 Surgical [PTH] Routine Labs on day of discharge: Laboratory Results - last 24 hr 11/24/20 06:00 Sodium 137 Potassium 3.6 Chloride 105 Carbon Dioxide 26 Anion Gap 10 L BUN 5 L Creatinine 0.58 Estim Creat Clear Calc 140.3 Estimated GFR > 60 Fasting Glucose 113 H Calcium 7.9 L Discharge Plan Discharge Patient Disposition: Home Health Service Discharge Diagnosis: RT TKA [facility] ([facility] MIRNA CASE PATIENT TO CALL FOR APOINTMENT POST HOSPTIAL DISCHARGE FOLLOW UP TRANSPORTATION FAMILY ORTHOPEDIC SURGEON FOLLOW UP PER DISCHARGE INSTRUCTIONS) Neena Padilla PA-C [Physician Children'S Nursery Assistant] - 2 Weeks (12/08/20 2:00 [facility] Neena Padilla PA-C) Discharge Medications: New docusate sodium 100 mg Capsule 100 mg PO BID 14 Days Qty: 28 RF: 0 acetaminophen 325 mg Tablet 650 mg PO Q6H PRN (Reason: Pain, Mild (Pain Scale 1-3)) 30 Days Qty: 240 RF: 0 oxycodone 5 mg Tablet 5 mg PO Q4H PRN (Reason: Pain, Moderate (Pain Scale 4-6) 7 Days Qty: 42 RF: 0 enoxaparin 40 mg/0.4 mL Syringe 40 mg subcut Q24H 28 Days Qty: 11.2 RF: 0 Continued sucralfate 100 mg/mL suspension 10 ml PO BID Qty: 420 RF: 3 pantoprazole 40 mg tablet,delayed release (DR/EC) 40 mg PO BID RF: 0 cholecalciferol (vitamin D3) 50 mcg (2,000 unit) tablet 100 mcg PO DAILY RF: 0 Bariatric Multivitamins 45 mg iron- 800 mcg-120 mcg capsule 1 cap PO DAILY RF: 0 (DME) Raised toilet seat See Rx Instructions .ROUTE .MEDSUPPLY Qty: 1 RF: 0 (DME) walker Misc See Rx Instructions .MEDSUPPLY Qty: 1 RF: 0 Discharge Orders: Discharge Order (Routine); Ordered 11/24/20 Ordered By: Neena Padilla Diet: regular diet Activity on Discharge: Use cane or walker Stand Alone Forms: Patient Portal Discharge page Care Plan Goals: Restore function of joint Health Concerns: None Plan of Treatment: Physical Therapy Pain management DVT prophylaxis Assessment: Physical Therapy for Total knee arthroplasty: gait training, ROM 0-12, quad strength Limit stair climbing No showering, no tub bath-keep dressing clean, dry and intact No driving x6 weeks Continue Lovenox x 4 weeks Follow up with [facility] in 2 weeks
[2020-11-24] MEDS: Docusate Sodium 100 MG CAPSULE PO (08:45)
[2020-11-24] MEDS: oxyCODONE HCl ER 10 MG TAB.ER.12H PO (08:45)
[2020-11-24] MEDS: Omeprazole 20 MG CAPSULE.DR PO (08:45)
[2020-11-24] MEDS: Enoxaparin Sodium 40 MG/0.4 ML SYRINGE SUBCUT (08:46)
[2020-11-24] MEDS: Sucralfate Oral Suspension 1 GM/10 ML ORAL.SUSP PO (08:46)
[2020-11-24 09:56] VITALS: BP 149/72; PULSE 95; O2SAT 93
== END 2020-11-24 11:50 | disposition home health service (06) | DRG 326 ==
LOC: HO.SSSA 07:14 → HO.S3 10:53
PROVIDERS: Physician Assistant; Admitting Provider Orthopaedic Surgery; PCP Internal Medicine; Visit Provider Orthopaedic Surgery
PROC: 0SRD0JA Replacement of Left Knee Joint with Synthetic Substitute, Uncemented, Open Approach (ICD-10-PCS; CPT 27447; principal; 2020-11-22 07:30)
DX: M17.12 Unilateral primary osteoarthritis, left knee (principal); E66.9 Obesity, unspecified; Z98.84 Bariatric surgery status; Z68.33 Body mass index [BMI] 33.0-33.9, adult; Z20.822 Contact with and (suspected) exposure to COVID-19; Z79.899 Other long term (current) drug therapy
CPT/HCPCS: 27447; 36415; 73560; 80048; 85025; 86850; 86900; 86901; 87635; 87640; 87641; 88305; 88311; 93005; 97110; 97116; 97162; C1776; J0131; J0690; J1100; J1170; J1650; J2250; J2405; J2550; J3010

== ENCOUNTER → 2020-12-08 14:03 | Outpatient (BNVA) | payer OTHER, SELFPAY | PROVIDERS: PCP Internal Medicine; Visit Provider Physician Assistant ==

== ENCOUNTER 2020-12-22 07:21 | Outpatient (REF) | payer OTHER, SELFPAY ==
--- NOTE | ~2020-12-22 | MM_ITS ---
EXAMINATION: MM SCREENING DIGITAL BREAST TOMOSYNTHESIS, BILATERAL CLINICAL INFORMATION: Screening. Asymptomatic. The lifetime risk of breast cancer based on the Tyrer-Cuzick Model is 17.2%. COMPARISON: Mammography: December 18, 2019 and studies dating back to February 13, 2012 TECHNIQUE: Digital breast tomosynthesis is performed in both the craniocaudal and mediolateral oblique views along with computer-aided detection (CAD). Synthesized 2D images are generated from the tomosynthesis. FINDINGS: There are scattered areas of fibroglandular density (ACR BI-RADS breast composition Category b). There are no significant masses, abnormal calcifications, or other abnormalities. MM/MM tomosynthesis screening BI IMPRESSION: There are no significant changes from prior study. ASSESSMENT: BI-RADS 1: Negative RECOMMENDATION: Routine annual mammography screening. This patient's information was entered into a reminder system with a target due date for their next mammogram.
== END 2020-12-22 07:22 | disposition home or self-care (01) ==
LOC: HO.MAMMO 07:21
PROVIDERS: PCP Internal Medicine; Visit Provider Internal Medicine
DX: Z12.31 Encounter for screening mammogram for malignant neoplasm of breast (principal)
CPT/HCPCS: 77063; 77067

== ENCOUNTER → 2021-01-05 10:09 | Outpatient (BNVA) | payer OTHER, SELFPAY | PROVIDERS: PCP Internal Medicine; Visit Provider Orthopaedic Surgery ==

== ENCOUNTER 2021-01-17 12:53 | Outpatient (REF) | payer OTHER, SELFPAY ==
--- NOTE | ~2021-01-17 | US_ITS ---
EXAMINATION: US ABDOMEN COMPLETE CLINICAL INFORMATION: Upper abdominal pain, unspecified. COMPARISON: Ultrasound abdomen complete with the elastography 11/30/2017. CT abdomen and pelvis 11/28/2017. Ultrasound abdomen 08/26/2015. TECHNIQUE: Real-time imaging of the abdominal viscera. FINDINGS: PANCREAS: Normal. ABDOMINAL AORTA: The proximal, mid, and distal segments are normal in caliber. INFERIOR VENA CAVA: Visualized portions are normal. LIVER: Normal. The liver is normal in size. The liver contour is normal. Parenchymal echogenicity is normal. No focal hepatic lesion. There is no intrahepatic biliary duct dilatation seen. GALLBLADDER: Normal The gallbladder is physiologically distended without evidence of stones, polyps, wall thickening or pericholecystic fluid. COMMON BILE DUCT: Normal in caliber measuring 0.5 cm in diameter. RIGHT KIDNEY: Normal. No hydronephrosis. No renal calculi or focal parenchymal lesions. The kidney measures 12.4 cm in maximum dimension. LEFT KIDNEY: There is a 3.7 x 4 x 3.5 cm complex cyst in the midpole with several thin septations and this measured 3.4 x 3.5 x 2.5 cm on 2018 exam and is minimally increased in size. This is suggestive of a Bosniak type II cyst. No hydronephrosis or renal calculi. The kidney measures 11.8 cm in maximum dimension. SPLEEN: Normal. The spleen measures 9.2 cm in maximum dimension. FREE FLUID: None. US/US abdomen complete IMPRESSION: 3.7 x 4 x 3.5 cm minimally complex left renal cyst. This is slightly increased from previous 2018 exam. Otherwise unremarkable exam.
== END 2021-01-17 12:54 | disposition home or self-care (01) ==
LOC: HO.HMGCX 12:53
PROVIDERS: PCP Internal Medicine; Visit Provider Internal Medicine
DX: R10.10 Upper abdominal pain, unspecified (principal)
CPT/HCPCS: 76700

== ENCOUNTER 2021-02-16 08:30 | Outpatient (REF) | payer OTHER, SELFPAY ==
--- NOTE | ~2021-02-16 | XR_ITS ---
EXAMINATION: CR X-RAY KNEE 2 VIEW LEFT, BILATERAL STANDING CLINICAL INFORMATION: Bilateral knee pain. COMPARISON: Left knee radiographs dated 11/22/2020. TECHNIQUE: 2 views of the left knee and bilateral standing views of the knees were obtained. FINDINGS: Left: The patient is status post left knee arthroplasty showing good anatomic alignment with no evidence for hardware malfunction. There is no acute fracture. There is a small joint effusion. The soft tissues are unremarkable. Right: Mild femoral-tibial degenerative joint changes are seen more pronounced medially. Mild chondrocalcinosis is also seen. There is no acute fracture. The soft tissues are unremarkable. XR/XR knee standing BI IMPRESSION: 1. No left knee hardware abnormality. Small joint effusion may be postsurgical. Previously seen intra-articular air has resolved. 2. Mild right knee femoral-tibial degenerative joint changes. No acute abnormality.
--- NOTE | ~2021-02-16 | XR_ITS ---
EXAMINATION: CR X-RAY KNEE 2 VIEW LEFT, BILATERAL STANDING CLINICAL INFORMATION: Bilateral knee pain. COMPARISON: Left knee radiographs dated 11/22/2020. TECHNIQUE: 2 views of the left knee and bilateral standing views of the knees were obtained. FINDINGS: Left: The patient is status post left knee arthroplasty showing good anatomic alignment with no evidence for hardware malfunction. There is no acute fracture. There is a small joint effusion. The soft tissues are unremarkable. Right: Mild femoral-tibial degenerative joint changes are seen more pronounced medially. Mild chondrocalcinosis is also seen. There is no acute fracture. The soft tissues are unremarkable. XR/XR knee LT 2V IMPRESSION: 1. No left knee hardware abnormality. Small joint effusion may be postsurgical. Previously seen intra-articular air has resolved. 2. Mild right knee femoral-tibial degenerative joint changes. No acute abnormality.
== END 2021-02-16 08:31 | disposition home or self-care (01) ==
LOC: HO.HOSX 08:30
PROVIDERS: Visit Provider Orthopaedic Surgery
DX: Z47.1 Aftercare following joint replacement surgery (principal); Z96.652 Presence of left artificial knee joint
CPT/HCPCS: 73560; 73565

== ENCOUNTER 2021-03-28 07:00 | Outpatient (RCR) | payer OTHER, SELFPAY ==
--- NOTE | 2020-12-28 14:04 | MHC.PT.EP ---
[facility] [place] Office [place] Office [place] Office [address] [phone] F: [phone] F: [phone] F: [phone] F: [phone] Physical Therapy Plan of Care Date of Evaluation: Date of Surgery: 11/22/20 Diagnosis: TKA Assessment: Patient is a 55 year old R handed female who presents with s/s consistent with L TKA. 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 Patient past medical history includes gastric bypass and L heel spur. Current impairments include pain, ROM, strength, safety, independence, activity tolerance and functional mobility. Functional limitations include decreased ability to walk, stand, transfer, negotiate stairs, and perform weight bearing activities.. Patient is motivated with good rehab potential. Skilled PT will address impairments and functional limitations in order to achieve goals. Frequency and Duration: The patient will be seen 3x/week for 5 weeks Short Term Goals: I with HEP - 2 weeks AROM 0-124 - 2 weeks SLR without lag - 2 weeks Helix Coil Winder Goals: Knee and hip strength 4+/5 - 4 weeks Restore normal gait, stair negotiation - 4 weeks Back to PLOF - 5 weeks, LEFS 56/80 - 5 weeks Treatment Plan: Modalities to reduce pain, spasms and effusion. Manual therapy to restore motion and function. Therapeutic exercise to improve strength and flexibility. Neuromuscular re-education for posture and balance. Therapeutic activities to return to functional activities of daily living. Electronically signed by: Dio Tee, PT Please sign and return to therapist. Thank you for your referral.
--- NOTE | 2021-05-19 07:51 | MHC.PT.DC ---
[facility] [place] Office [place] Office [place] Office [address] 140 [facility] [phone] F: [phone] F: [phone] F: [phone] F: [phone] Physical Therapy Discharge Report Diagnosis: TKA Date of Surgery: 11/22/20 Date of Evaluation: 12/28/20 Date of Discharge: 03/30/21 Treatments to Date: 18 Cancellations to Date: 0 No Shows to Date: 0 Discharge Status: Achieved Goals Independent with HEP Discharge Summary: Progressed very well in skilled PT. I with HEP. ROM 0-124. SLR without lag. Knee and hip strength 4+/5 grossly, normal gait mechanics and LEFS 64/80. Appropriate to d/c to HEP at this time. Electronically signed by: Dio Tee, PT Please sign and return to therapist. Thank you for your referral.
== END 2021-09-04 11:19 | disposition home or self-care (01) ==
LOC: HO.PTCHIC 07:00
PROVIDERS: PCP Internal Medicine; Visit Provider Orthopaedic Surgery
DX: Z96.652 Presence of left artificial knee joint (principal)
CPT/HCPCS: 97110; 97112; 97162; 97530

== ENCOUNTER 2021-05-09 08:33 | Outpatient (REF) | payer OTHER, SELFPAY ==
[2021-05-09 10:11] LABS: MANUAL DIFF FLAG NO
[2021-05-09 10:31] LABS: Basophils Absolute Auto 0.1 X10*3/uL (0.0-0.2); Basophils Percent Auto 1.7 % (0-2); Eosinophils Absolute Auto 0.3 X10*3/uL (0.0-0.4); Eosinophils Percent Auto 7.4 % (0-4); Hematocrit 40.6 % (37.0-47.0); Hemoglobin 12.6 g/dl (12.0-16.0); Imm Gran Abs Auto 0.01 X10*3/uL (0.00-0.03); Imm Gran Pct Auto 0.2 % (0.0-0.4); Lymphocytes Percent Auto 24.5 % (20-40); Mean Corpuscular Hemoglobin 28.4 pg (27.0-33.0); Mean Corpuscular Volume 91.4 fL (80.0-98.0); Mean Platelet Volume 9.7 fL (9.4-12.3); Monocytes Absolute Auto 0.5 X10*3/uL (0.1-1.2); Monocytes Percent Auto 11.5 % (2-11); Neutrophils Absolute Auto 2.3 x10*3/uL (2.0-8.3); Neutrophils Percent Auto 54.7 % (45-73); Platelet Count 312 X10*3/uL (160-400); Red Blood Count 4.44 X10*6/uL (4.20-5.50); Red Cell Distribution Width 14.1 % (11.0-16.0); White Blood Count 4.2 X10*3/uL (4.8-10.8)
[2021-05-09 10:34] LABS: Estimated Average Glucose 111 mg/dL; Hemoglobin A1c % 5.5 %
[2021-05-09 10:48] LABS: Anion Gap 12 (12-20); Blood Urea Nitrogen 10 mg/dL (9-16); C Reactive Protein 2.75 mg/dL (< or = 0.50); Calcium 9.6 mg/dL (8.4-10.2); Carbon Dioxide 25 mmol/L (22-29); Chloride 108 mmol/L (96-108); Cholesterol 202 mg/dL; Estimated Glomerular Filt Rate > 60; Glucose Random 96 mg/dL (60-115); HDL Cholesterol 75 mg/dL; Iron 30 mcg/dL (30-160); LDL Cholesterol Calculated 113 mg/dl; Percent Iron Saturation 8 % (15-50); Potassium 4.8 mmol/L (3.3-5.1); Sodium 140 mmol/L (135-145); Total Iron Binding Capacity 399 mcg/dL (228-428); Triglycerides 71 mg/dL; Unsaturated Iron Binding 369 ug/dL
[2021-05-09 11:12] LABS: Ferritin 49 ng/mL (10-250); TSH reflex Free T4 1.65 uIU/mL (0.32-4.0); Vitamin D 25-OH Total 28.5 ng/mL (>30)
[2021-05-09 11:42] LABS: Folate 12.8 ng/mL (> or = 4.0); Vitamin B12 374 pg/mL (200-900)
[2021-05-10 13:51] LABS: Calcium (PTHI) 9.5 mg/dL (8.6-10.4); PTHI 50 pg/mL (14-64)
[2021-05-13 03:36] LABS: Zinc 76 mcg/dL (60-130)
[2021-05-13 10:11] LABS: Vitamin B1 7 nmol/L (8-30)
[2021-05-14 12:26] LABS: Vitamin A 16 mcg/dL (38-98)
== END 2021-05-09 08:34 | disposition home or self-care (01) ==
LOC: HO.LAB 08:33
PROVIDERS: PCP Internal Medicine; Referring Provider Internal Medicine; Visit Provider Physician Assistant Surgical
DX: K90.49 Malabsorption due to intolerance, not elsewhere classified (principal); E66.9 Obesity, unspecified; Z98.84 Bariatric surgery status
CPT/HCPCS: 36415; 80048; 80061; 82306; 82607; 82728; 82746; 83036; 83540; 83970; 84425; 84443; 84590; 84630; 85025; 86140

== ENCOUNTER → 2021-06-06 09:06 | Outpatient (BNVA) | payer OTHER, SELFPAY | PROVIDERS: PCP Internal Medicine; Referring Provider Internal Medicine; Visit Provider Dietitian, Registered | DX: K90.49 Malabsorption due to intolerance, not elsewhere classified (principal); Z68.33 Body mass index [BMI] 33.0-33.9, adult; Z98.84 Bariatric surgery status | CPT/HCPCS: 97803 ==

== ENCOUNTER 2021-07-20 08:31 | Outpatient (REF) | payer OTHER, SELFPAY ==
[2021-07-26 13:30] LABS: Vitamin B1 11 nmol/L (8-30)
[2021-07-27 10:57] LABS: Vitamin A 25 mcg/dL (38-98)
== END 2021-07-20 08:32 | disposition home or self-care (01) ==
LOC: HO.LAB 08:31
PROVIDERS: PCP Internal Medicine; Visit Provider Physician Assistant Surgical
DX: K90.49 Malabsorption due to intolerance, not elsewhere classified (principal); E66.9 Obesity, unspecified; R56.9 Unspecified convulsions; Z98.84 Bariatric surgery status
CPT/HCPCS: 36415; 84425; 84590

== ENCOUNTER 2021-09-15 08:23 | Outpatient (REF) | payer OTHER, SELFPAY ==
[2021-09-15 11:43] LABS: ~Hepatitis B Surface Antibody NONREACTIVE (Nonreactive)
[2021-09-17 05:12] LABS: Rubella IgG Antibody 0.97 Index
[2021-09-17 15:47] LABS: TS Negative Control Passed; TS Panel A 0; TS Panel B 0; TS Positive Control Passed; TSpotTB Negative (Negative)
[2021-09-19 14:56] LABS: Tetanus Antitoxiod Antibody 0.87 IU/mL
== END 2021-09-15 08:24 | disposition home or self-care (01) ==
LOC: HO.HMGCLDS 08:23
PROVIDERS: PCP Internal Medicine; Visit Provider Internal Medicine
DX: Z01.84 Encounter for antibody response examination (principal); Z11.1 Encounter for screening for respiratory tuberculosis
CPT/HCPCS: 36415; 86481; 86706; 86735; 86762; 86765; 86774; 86787

== ENCOUNTER 2021-10-29 07:58 | Emergency (ER) | payer OTHER, SELFPAY ==
--- NOTE | ~2021-10-29 | CT_ITS ---
EXAMINATION: CT ABDOMEN AND PELVIS WITHOUT CONTRAST CLINICAL INFORMATION: Left-sided abdominal pain COMPARISON: November 28, 2017 TECHNIQUE: Multidetector volumetric imaging was performed from the superior aspect of the liver through the pubic symphysis. Sagittal and coronal reformatted images were obtained on the technologist's workstation. This CT examination was performed using dose optimization techniques as appropriate, variously including the following: *Automated exposure control *Adjustment of mA and/or kV according to patient size (this includes techniques or standardized protocols for targeted exams where dose is matched to indication/reason for exam; i.e. extremities or head) *Use of iterative reconstruction technique DLP: 973 mGy-cm FINDINGS: LUNG BASES: The visualized lung bases are unremarkable. No pleural or pericardial effusion. LIVER, GALLBLADDER, AND BILIARY TREE: The liver is normal in size, shape, and attenuation. No focal hepatic lesion or biliary ductal dilatation is present. The gallbladder is unremarkable with no evidence of radiopaque gallstones, gallbladder wall thickening, or obvious pericholecystic inflammatory changes. PANCREAS: Unremarkable. SPLEEN: Unremarkable. ADRENAL GLANDS: Unremarkable. KIDNEYS AND URETERS: The right kidney and ureter appear unremarkable without evidence of hydronephrosis, calculi, or abnormal mass. Within the left renal pelvis there is a 4.0 x 2.7 cm well-circumscribed probable parapelvic cyst which is higher than water density and probably representing a complex cyst. There is also noted be a parapelvic cyst within the upper pole measuring approximately 2.4 x 1.6 cm in size. Both of these structures were present on previous study of November 28, 2017 without significant change. No hydroureter or hydronephrosis. No renal or ureteral calculi. BLADDER: Unremarkable. GASTROINTESTINAL TRACT: No dilated loops of large or small bowel. No free air or free fluid. Patient is status post previous gastric bypass surgery. There is a large stool burden within the colon from the cecum to mid descending colon. No colonic bowel wall thickening is identified and no pericolonic inflammatory change is seen. No evidence of acute appendicitis. ABDOMINAL WALL: No significant hernia is appreciated. LYMPH NODES: No lymphadenopathy appreciated. VASCULAR: Unremarkable. PELVIC VISCERA: There appears to be a 2.8 x 2.1 cm right adnexal cyst. OSSEOUS STRUCTURES: No suspicious destructive bony lesions identified. There is bilateral facet arthropathy seen L3-S1. CT/CT abdomen pelvis wo con IMPRESSION: No evidence of ileus or obstruction. Large stool burden seen within the cecum to the mid descending colon. There are again noted to be 2 left-sided parapelvic cysts within the left kidney, the largest of which appears to be complex. Status post gastric surgery. No evidence of obstructive uropathy. Fleischner guidelines were followed.
[2021-10-29 08:21] LABS: Basophils Absolute Auto 0.1 X10*3/uL (0.0-0.2); Basophils Percent Auto 0.6 % (0-2); Eosinophils Absolute Auto 0.1 X10*3/uL (0.0-0.4); Eosinophils Percent Auto 0.7 % (0-4); Hematocrit 39.2 % (37.0-47.0); Hemoglobin 12.5 g/dl (12.0-16.0); Imm Gran Abs Auto 0.03 X10*3/uL (0.00-0.03); Imm Gran Pct Auto 0.4 % (0.0-0.4); Lymphocytes Absolute Auto 0.9 X10*3/uL (1.2-4.9); Lymphocytes Percent Auto 10.4 % (20-40); MANUAL DIFF FLAG NO; Mean Corpuscular HGB Conc 31.9 g/dl (31.0-35.0); Mean Corpuscular Hemoglobin 28.2 pg (27.0-33.0); Mean Corpuscular Volume 88.5 fL (80.0-98.0); Mean Platelet Volume 9.6 fL (9.4-12.3); Monocytes Absolute Auto 0.5 X10*3/uL (0.1-1.2); Monocytes Percent Auto 5.6 % (2-11); Neutrophils Absolute Auto 6.9 x10*3/uL (2.0-8.3); Neutrophils Percent Auto 82.3 % (45-73); Platelet Count 330 X10*3/uL (160-400); Red Blood Count 4.43 X10*6/uL (4.20-5.50); Red Cell Distribution Width 14.1 % (11.0-16.0); White Blood Count 8.4 X10*3/uL (4.8-10.8)
[2021-10-29 08:31] LABS: Appearance Urine CLEAR; Color Urine YELLOW; Glucose Urine UA NEG (NEG); Leukocyte Esterase Urine NEG (NEG); Nitrite Urine NEG (NEG); PH 5.5 (5.0-8.0); Specific Gravity - Urine >= 1.030 (1.005-1.025); UACC Culture Trigger NO; Urine Blood 3+ (NEG); Urine Ketones >=80 MG/DL (NEG); Urine Protein 1+ MG/DL (NEG-TRACE)
[2021-10-29 08:36] VITALS: BP 121/84; PULSE 100; RESP 18; TEMP 37; O2SAT 97; BMI 34.0
[2021-10-29 08:43] LABS: Bacteria Urine 1+ /LPF; Squamous Epithelial Cell Urine 1+ /LPF; WBC Urine 0-2 /HPF (0-4)
[2021-10-29 08:44] LABS: Mucus Urine TRACE /LPF
[2021-10-29 08:48] LABS: Alanine Aminotransferase 14 U/L (0-31); Albumin Level 4.5 g/dL (3.5-5.0); Alkaline Phosphatase 81 U/L (39-117); Anion Gap 16 (12-20); Aspartate Amino Transferase 20 U/L (5-31); Bilirubin Direct 0.2 mg/dL (0.0-0.5); Bilirubin Total 0.6 mg/dL (0.0-1.0); Blood Urea Nitrogen 11 mg/dL (9-16); Calcium 9.2 mg/dL (8.4-10.2); Carbon Dioxide 23 mmol/L (22-29); Chloride 103 mmol/L (96-108); Creatinine Clr Calc Pharmacy 113.7; Estimated Glomerular Filt Rate > 60; Glucose Random 98 mg/dL (60-115); Potassium 4.9 mmol/L (3.3-5.1); Sodium 137 mmol/L (135-145); Total Protein 7.5 g/dL (6.5-8.0)
[2021-10-29 11:06] VITALS: BP 128/69; PULSE 84; RESP 17; TEMP 36.8; O2SAT 100
--- NOTE | 2021-10-29 11:39 | ECG_ITS ---
Test Reason : ABD PAIN Blood Pressure : / mmHG Vent. Rate : 072 BPM Atrial Rate : 072 BPM P-R Int : 144 ms QRS Dur : 088 ms QT Int : 398 ms P-R-T Axes : 064 021 044 degrees QTc Int : 435 ms Normal sinus rhythm Normal ECG When compared with ECG of 13-OCT-2020 08:00, No significant change was found Referred By: Ford Wyman Electronically Signed By:MACARENA BOLANOS
[2021-10-29] MEDS: Famotidine 20 MG TABLET PO (11:54)
[2021-10-29] MEDS: Lidocaine HCl Viscous 2 % 15 ML SOLUTION MUCOUS MEM (11:54)
[2021-10-29] MEDS: PHENobarb/Hyoscy/Atropine/Scop 10 ML ELIXIR PO (11:55)
--- NOTE | 2021-10-29 12:06 | ED.ABDPAIN ---
HPI - Abdominal Pain General Chief Complaint: Abdominal Pain Stated Complaint: Vomiting/abd pain Time Seen by Provider: 10/29/21 11:19 Source: patient Mode of arrival: ambulatory Limitations: no limitations History of Present Illness HPI narrative: 56-year-old female obese soft,/ status post gastric bypass presents to the ED for left upper left lower abdominal pain for the past week with episodes of vomiting. Patient called her bariatric provider who told to be on liquid diet and on Zofran. Patient states having normal bowel movements. Patient denies any dysuria or hematuria flank pain. She denies any vaginal bleeding, chest pain, shortness of breath. Patient denies any recent trauma to the abdomen. Patient states no rectal bleeding or vomiting blood. Patient states no relief with sucralfate. Patient denies taking large amount of NSAIDs. Related Data Home Medications Medication Instructions Recorded Confirmed [id number] 45 mg-folic 1 cap PO DAILY 02/19/20 09/15/21 acid 800 mcg-vit K 120 mcg capsule (Bariatric Multivitamins) docusate sodium 100 mg capsule 100 mg PO BID PRN constipation 05/09/21 09/15/21 Previous Rx's Medication Instructions Recorded acetaminophen 325 mg tablet 650 mg PO Q6H PRN Pain, Mild (Pain 12/28/20 Scale 1-3) 30 days #240 tabs pantoprazole 40 mg tablet,delayed 40 mg PO Q12H #60 tabs 05/09/21 release sucralfate 100 mg/mL oral 10 ml PO BID #420 mL 05/09/21 suspension thiamine HCl (vitamin B1) 100 mg 100 mg PO DAILY #30 tabs 08/07/21 tablet vitamin A palmitate 10,000 unit 10,000 unit PO DAILY #30 caps 09/28/21 capsule ondansetron 4 mg disintegrating 4 mg PO Q8H PRN nausea and 10/28/21 tablet vomiting #30 tabs psyllium husk 0.52 gram capsule 1.04 g PO BID constipation 3 days 10/29/21 (Fiber Laxative (psyllium husk)) #12 caps Allergies Allergy/AdvReac Type Severity Reaction Status Date / Time Iodinated Contrast Media Allergy Intermediate hives, Verified 09/15/21 07:53 [IV CONTRAST] redness, welts iodine [IODINE] Allergy Intermediate SKIN RASH, Verified 09/15/21 07:53 redness, welts, redness Review of Systems Review of Systems Left upper/ lower abdominal pain, vomiting. History of ulcers. Yes all other systems are reviewed and are negative [facility] Past Medical History Medical History Anastomotic ulcer BMI 30.0-30.9,adult Bone spur of left foot COVID-19 vaccine series completed Cyst of left kidney Hematuria Malabsorption due to intolerance, not elsewhere classified Obesity (BMI 30-39.9) PONV (postoperative nausea and vomiting) Shingles Surgical History H/O arthroscopy of left knee H/O elbow surgery H/O tubal ligation H/O: hysterectomy S/P gastric bypass [place] teeth extracted Family History Family History Father Cataract Skin cancer Mother HTN (hypertension) Anxiety Depression Obesity Smoker Sister Breast cancer Brother No problems noted. Sister No problems noted. Sister No problems noted. Sister No problems noted. Sister No problems noted. Daughter No problems noted. Daughter No problems noted. Daughter No problems noted. 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 Cognitive needs: No Hearing needs: No Vision needs: Yes Physical Exam ED Vital Signs: Vital Signs - 24 hr 10/29/21 08:36 10/29/21 11:06 10/29/21 14:19 Temperature 98.6 F 98.2 F Pulse Rate 100 84 67 Respiratory Rate 18 17 17 Blood Pressure 121/84 128/69 114/55 L Pulse Oximetry 97 100 100 Oxygen Delivery Method Room Air Room Air Room Air BMI result Body Mass Index 34.0 Const General: cooperative, healthy appearing, comfortable, no acute distress, well developed, alert, awake and Physically active Orientation/consciousness: patient oriented x3 [facility] Head: Yes normal to inspection, Yes No palpable skull fracture present, Yes normocephalic, Yes atraumatic and No abrasion Eyes General: appearance normal, both eyes and all related structures Neck Neck: Yes normal visual inspection, Yes full ROM, Yes no lymphadenopathy, Yes no meningeal signs, Yes trachea midline, Yes supple, No anterior neck swelling and No tender Chest Chest palpation & inspection: normal inspection of the chest and normal palpation of entire chest wall Resp Effort & Inspection: normal respiratory effort and able to speak in complete sentences Auscultation: clear to auscultation bilaterally Cardio Jugular venous distension: no JVD Heart sounds: S1 normal heart sound present and S2 normal heart sound present GI Inspection: Yes normal to inspection and No abdominal wall ecchymosis Palpation (GI): Soft to palpation, not firm, Tenderness to palpation present (GI) in the LLQ and in the LUQ, no guarding and not rigid General: No CVA tenderness and Yes no CVA tenderness Back/Spine/Pelvis Back: no CVA tenderness, No CVA tenderness and No back tenderness Skin General skin exam: no rashes or lesions noted and elasticity normal Neuro General: patient oriented x3, gait normal, tone normal, no meningeal signs and CN's II-XI intact bilaterally Cranial nerves: Yes CN's II-XII intact bilaterally Extrem Other: Lower extremities negative for swelling, pitting edema, or calf tenderness. General: Yes normal to inspection and Yes full ROM Psych Appearance: grossly normal, well kempt and not disheveled Course Course Course Narrative: Due to age will do EKG and 1 troponin for abdominal pain for 1 week. Not Suspecting PE, CHF, or pneumonia. Urinalysis ordered. Due to gastric bypass and vomiting will do abdominal CT scan with oral contrast to look for any leak age. oral GI cocktail ordered. IV fluids and Zofran ordered. Patient presently is not need distress. Reevaluation(s) Reevaluation #1: UA shows some blood in UA. Normal WBC and chemstry. Troponin pending. Barium oral contrast given to patient to drink Time: 12:20 Reevaluation #2: Abdominal CT scan does not show any obstruction, perforation, kidney stones, or colitis. Abdominal CT scan just shows constipation. Waiting to hear back from JACK Anaya of Bariatric surgery Time: 15:23 Reevaluation #3: JACK Anaya spoke with her Attendant Dr. Woodruff who states patient can be discharged and should continue taking pantanoxole, carafarte, zofran for the next two days and drink protein shakes or proteing water only at 30cc every 30 minutes Time: 04:16 MDM - Abdominal Pain MDM Narrative Medical decision making narrative: GERD. Constipation. Lab Data Result diagrams: 10/29/21 08:15 10/29/21 08:15 Labs: Lab Results 10/29/21 10/29/21 10/29/21 Range/Units 08:15 08:15 08:21 WBC 8.4 (4.8-10.8) X10*3/uL RBC 4.43 (4.20-5.50) X10*6/uL Hgb 12.5 (12.0-16.0) g/dl Hct 39.2 (37.0-47.0) % MCV 88.5 (80.0-98.0) fL MCH 28.2 (27.0-33.0) pg MCHC 31.9 (31.0-35.0) g/dl RDW 14.1 (11.0-16.0) % Plt Count 330 (160-400) X10*3/uL MPV 9.6 (9.4-12.3) fL Immature Gran % (Auto) 0.4 (0.0-0.4) % Neut % (Auto) 82.3 H (45-73) % Lymph % (Auto) 10.4 L (20-40) % Delta % (Auto) 5.6 (2-11) % Eos % (Auto) 0.7 (0-4) % Baso % (Auto) 0.6 (0-2) % Lymph # (Auto) 0.9 L (1.2-4.9) X10*3/uL Delta # (Auto) 0.5 (0.1-1.2) X10*3/uL Eos # (Auto) 0.1 (0.0-0.4) X10*3/uL Baso # (Auto) 0.1 (0.0-0.2) X10*3/uL Abs Immat Gran (auto) 0.03 (0.00-0.03) X10*3/uL Absolute Neuts (auto) 6.9 (2.0-8.3) x10*3/uL Absolute Nucleated RBC 0.000 (0.0-0.012) X10*3/uL Nucleated RBC % (auto) 0.0 (0.0-0.2) /100WBC PT (10.0-13.1) SEC INR (0.9-1.1) APTT (24.1-38.0) SEC Sodium 137 (135-145) mmol/L Potassium 4.9 (3.3-5.1) mmol/L Chloride 103 (96-108) mmol/L Carbon Dioxide 23 (22-29) mmol/L Anion Gap 16 (12-20) BUN 11 (9-16) mg/dL Creatinine 0.71 (0.5-1.4) mg/dL Estim Creat Clear Calc 113.7 Estimated GFR > 60 Random Glucose 98 (60-115) mg/dL Calcium 9.2 (8.4-10.2) mg/dL Total Bilirubin 0.6 (0.0-1.0) mg/dL Direct Bilirubin 0.2 (0.0-0.5) mg/dL AST 20 (5-31) U/L ALT 14 (0-31) U/L Alkaline Phosphatase 81 (39-117) U/L Troponin I High Sens (<3.5-17.0) ng/L Total Protein 7.5 (6.5-8.0) g/dL Albumin 4.5 (3.5-5.0) g/dL Urine Color YELLOW Urine Appearance CLEAR Urine pH 5.5 (5.0-8.0) Ur Specific Dana >= 1.030 H (1.005-1.025) Urine Protein 1+ H (NEG-TRACE) MG/DL Urine Glucose (UA) NEG (NEG) MG/DL Urine Ketones >=80 (NEG) MG/DL Urine Blood 3+ H (NEG) Urine Nitrite NEG (NEG) Ur Leukocyte Esterase NEG (NEG) Urine RBC 10-14 H (0) /HPF Urine WBC 0-2 (0-4) /HPF Ur Squamous Epith Cells 1+ /LPF Urine Bacteria 1+ /LPF Urine Mucus TRACE /LPF 10/29/21 10/29/21 Range/Units 13:05 13:05 WBC (4.8-10.8) X10*3/uL RBC (4.20-5.50) X10*6/uL Hgb (12.0-16.0) g/dl Hct (37.0-47.0) % MCV (80.0-98.0) fL MCH (27.0-33.0) pg MCHC (31.0-35.0) g/dl RDW (11.0-16.0) % Plt Count (160-400) X10*3/uL MPV (9.4-12.3) fL Immature Gran % (Auto) (0.0-0.4) % Neut % (Auto) (45-73) % Lymph % (Auto) (20-40) % Delta % (Auto) (2-11) % Eos % (Auto) (0-4) % Baso % (Auto) (0-2) % Lymph # (Auto) (1.2-4.9) X10*3/uL Delta # (Auto) (0.1-1.2) X10*3/uL Eos # (Auto) (0.0-0.4) X10*3/uL Baso # (Auto) (0.0-0.2) X10*3/uL Abs Immat Gran (auto) (0.00-0.03) X10*3/uL Absolute Neuts (auto) (2.0-8.3) x10*3/uL Absolute Nucleated RBC (0.0-0.012) X10*3/uL Nucleated RBC % (auto) (0.0-0.2) /100WBC PT 12.7 (10.0-13.1) SEC INR 1.1 (0.9-1.1) APTT 40.3 H (24.1-38.0) SEC Sodium (135-145) mmol/L Potassium (3.3-5.1) mmol/L Chloride (96-108) mmol/L Carbon Dioxide (22-29) mmol/L Anion Gap (12-20) BUN (9-16) mg/dL Creatinine (0.5-1.4) mg/dL Estim Creat Clear Calc Estimated GFR Random Glucose (60-115) mg/dL Calcium (8.4-10.2) mg/dL Total Bilirubin (0.0-1.0) mg/dL Direct Bilirubin (0.0-0.5) mg/dL AST (5-31) U/L ALT (0-31) U/L Alkaline Phosphatase (39-117) U/L Troponin I High Sens < 3.5 (<3.5-17.0) ng/L Total Protein (6.5-8.0) g/dL Albumin (3.5-5.0) g/dL Urine Color Urine Appearance Urine pH (5.0-8.0) Ur Specific Dana (1.005-1.025) Urine Protein (NEG-TRACE) MG/DL Urine Glucose (UA) (NEG) MG/DL Urine Ketones (NEG) MG/DL Urine Blood (NEG) Urine Nitrite (NEG) Ur Leukocyte Esterase (NEG) Urine RBC (0) /HPF Urine WBC (0-4) /HPF Ur Squamous Epith Cells /LPF Urine Bacteria /LPF Urine Mucus /LPF ECG Data Interpretation: Normal Sinus rhythm. Vent rate 72. [place] interval 144. QRS 88, and QTC 435. Negative stmi Discharge Plan Discharge Clinical Impression: Gastroesophageal reflux disease, Constipation Patient Disposition: Home, Self-Care Instructions: Constipation (ED), Gastroesophageal Reflux Disease (ED) Additional Instructions: The blood work, EKG, troponin, and CT scan came back normal. You are safe for discharge. Spoke with JACK Anaya who spoke with Dr. Woodruff who recommends pantonazole daily, carafate quid, and zofran every 8 hours. He also recommends drink protein shakes or protein water 30cc until follow up. He states follow up tomorrow, but call office tomorrow morning to confirm. Return to the ED immediately for any chest pain, epigastric pain, vomiting blood, blood in stool, weakness, dizziness, shortness of breath, passing out, worsening abdominal pain, dysuria, hematuria, flank pain, fever, chills, or any other concerning symptoms. Prescriptions: New psyllium husk [Fiber Laxative (psyllium husk)] 0.52 gram capsule 1.04 g PO BID 3 Days Qty: 12 0RF No Action acetaminophen 325 mg tablet 650 mg PO Q6H PRN (Reason: Pain, Mild (Pain Scale 1-3)) 30 Days Qty: 240 0RF thiamine HCl (vitamin B1) 100 mg tablet 100 mg PO DAILY Qty: 30 2RF vitamin A palmitate 10,000 unit capsule 10,000 unit PO DAILY Qty: 30 2RF ondansetron 4 mg tablet,disintegrating 4 mg PO Q8H PRN (Reason: nausea and vomiting) Qty: 30 1RF Bariatric Multivitamins 45 mg iron- 800 mcg-120 mcg capsule 1 cap PO DAILY docusate sodium 100 mg capsule 100 mg PO BID PRN (Reason: constipation) pantoprazole 40 mg tablet,delayed release (DR/EC) 40 mg PO Q12H Qty: 60 11RF sucralfate 100 mg/mL suspension 10 ml PO BID Qty: 420 8RF Referrals: Leonela Aanya PA-C [Physician [employer] Developer] - ( abdominal pain) Rex Lim MD [Physician] - ( Abdominal pain) Stand Alone Forms: Work/School Release Interventions: ED Discharge Assessment Last Done: 10/29/21 16:50 Discharge Date/Time: 10/29/21 16:50 Print Language: Georgian
[2021-10-29] MEDS: ondansetron HCL 4 MG/2 ML VIAL IVPUSH (12:11)
[2021-10-29] MEDS: 0.9 % Sodium Chloride 1,000 ML 999 ML IV (12:11)
[2021-10-29 13:27] LABS: INTERNATIONAL NORM RATIO 1.1 (0.9-1.1); Prothrombin Time 12.7 SEC (10.0-13.1)
[2021-10-29 13:30] LABS: Partial Thromboplastin Time 40.3 SEC (24.1-38.0)
[2021-10-29 13:37] LABS: Troponin-I High Sensitivity < 3.5 ng/L (<3.5-17.0)
[2021-10-29] MEDS: Barium Sulfate Oral (Vanilla) 450 ML ORAL.SUSP PO (14:08)
[2021-10-29 14:19] VITALS: BP 114/55; PULSE 67; RESP 17; O2SAT 100
== END 2021-10-29 16:50 | disposition home or self-care (01) ==
PROVIDERS: Physician Assistant; Emergency Provider Emergency Medicine Emergency Medical Services; PCP Internal Medicine
DX: K21.9 Gastro-esophageal reflux disease without esophagitis (principal); K59.00 Constipation, unspecified; Z79.899 Other long term (current) drug therapy
CPT/HCPCS: 36415; 74176; 80048; 80076; 81001; 84484; 85025; 85610; 85730; 93005; 96361; 96374; 99284; J2405

== ENCOUNTER 2021-11-17 13:30 | Outpatient (REF) | payer OTHER, SELFPAY ==
[2021-11-17 15:45] LABS: Vitamin D 25-OH Total 31.4 ng/mL (>30)
[2021-11-23 09:57] LABS: Vitamin A 33 mcg/dL (38-98)
[2021-11-25 06:56] LABS: Vitamin B1 14 nmol/L (8-30)
== END 2021-11-17 13:31 | disposition home or self-care (01) ==
LOC: HO.LAB 13:30
PROVIDERS: PCP Internal Medicine; Visit Provider Physician Assistant Surgical
DX: K90.49 Malabsorption due to intolerance, not elsewhere classified (principal); Z98.84 Bariatric surgery status
CPT/HCPCS: 36415; 82306; 84425; 84590

== ENCOUNTER 2021-12-27 07:22 | Outpatient (REF) | payer OTHER, SELFPAY ==
--- NOTE | ~2021-12-27 | MM_ITS ---
EXAMINATION: MM SCREENING DIGITAL BREAST TOMOSYNTHESIS, BILATERAL CLINICAL INFORMATION: Screening. Asymptomatic. The lifetime risk of breast cancer based on the Tyrer-Cuzick Model is 14%. COMPARISON: Mammography: 12/22/2020, 12/18/2019, 12/12/2018 TECHNIQUE: Digital breast tomosynthesis is performed in both the craniocaudal and mediolateral oblique views along with computer-aided detection (CAD). Synthesized 2D images are generated from the tomosynthesis. FINDINGS: There are scattered areas of fibroglandular density (ACR BI-RADS breast composition Category b). There are no significant masses, abnormal calcifications, or other abnormalities. Parenchymal pattern is similar to prior studies. There is no developing density or architectural abnormality. The axilla and skin contours are unremarkable. No significant changes. MM/MM tomosynthesis screening BI IMPRESSION: No mammographic evidence of malignancy. ASSESSMENT: BI-RADS 1: Negative RECOMMENDATION: Routine annual mammography screening. This patient's information was entered into a reminder system with a target due date for their next mammogram.
== END 2021-12-27 07:23 | disposition home or self-care (01) ==
LOC: HO.MAMMO 07:22
PROVIDERS: PCP Internal Medicine; Visit Provider Internal Medicine
DX: Z12.31 Encounter for screening mammogram for malignant neoplasm of breast (principal)
CPT/HCPCS: 77063; 77067

== ENCOUNTER 2022-02-15 | Outpatient (REF) | payer OTHER, SELFPAY ==
--- NOTE | ~2022-02-15 | XR_ITS ---
EXAMINATION: XR knee standing BI, XR knee LT 2V CLINICAL INFORMATION: Reason for Exam M25.569 - Pain in unspecified knee COMPARISON: 02/16/2021 TECHNIQUE: A standing view of the bilateral knees and 2 views of the left knee XR/XR knee LT 2V FINDINGS/IMPRESSION: * No acute fracture or dislocation. * Chondrocalcinosis of the bilateral right tibiofemoral compartments. * Status post left knee arthroplasty without evidence of hardware complication * No soft tissue abnormality.
--- NOTE | ~2022-02-15 | XR_ITS ---
EXAMINATION: XR knee standing BI, XR knee LT 2V CLINICAL INFORMATION: Reason for Exam M25.569 - Pain in unspecified knee COMPARISON: 02/16/2021 TECHNIQUE: A standing view of the bilateral knees and 2 views of the left knee XR/XR knee standing BI FINDINGS/IMPRESSION: * No acute fracture or dislocation. * Chondrocalcinosis of the bilateral right tibiofemoral compartments. * Status post left knee arthroplasty without evidence of hardware complication * No soft tissue abnormality.
== END 2022-02-15 00:01 | disposition home or self-care (01) ==
LOC: HO.HOSX
PROVIDERS: Visit Provider Orthopaedic Surgery
DX: M25.561 Pain in right knee (principal); M25.562 Pain in left knee
CPT/HCPCS: 73560; 73565

== ENCOUNTER 2022-07-31 12:22 | Outpatient (REF) | payer OTHER, SELFPAY ==
[2022-07-31 14:05] LABS: MANUAL DIFF FLAG NO
[2022-07-31 14:11] LABS: Basophils Absolute Auto 0.1 X10*3/uL (0.0-0.2); Basophils Percent Auto 1.5 % (0-2); Eosinophils Absolute Auto 0.1 X10*3/uL (0.0-0.4); Eosinophils Percent Auto 1.4 % (0-4); Hematocrit 31.4 % (37.0-47.0); Hemoglobin 9.6 g/dl (12.0-16.0); Imm Gran Abs Auto 0.01 X10*3/uL (0.00-0.03); Imm Gran Pct Auto 0.2 % (0.0-0.4); Lymphocytes Absolute Auto 1.7 X10*3/uL (1.2-4.9); Lymphocytes Percent Auto 29.6 % (20-40); Mean Corpuscular HGB Conc 30.6 g/dl (31.0-35.0); Mean Corpuscular Hemoglobin 25.8 pg (27.0-33.0); Mean Corpuscular Volume 84.4 fL (80.0-98.0); Mean Platelet Volume 10.3 fL (9.4-12.3); Monocytes Absolute Auto 0.6 X10*3/uL (0.1-1.2); Monocytes Percent Auto 9.5 % (2-11); Neutrophils Absolute Auto 3.4 x10*3/uL (2.0-8.3); Neutrophils Percent Auto 57.8 % (45-73); Platelet Count 414 X10*3/uL (160-400); Red Blood Count 3.72 X10*6/uL (4.20-5.50); Red Cell Distribution Width 14.8 % (11.0-16.0); White Blood Count 5.9 X10*3/uL (4.8-10.8)
[2022-07-31 14:31] LABS: Alanine Aminotransferase 8 U/L (0-31); Albumin Level 4.4 g/dL (3.5-5.0); Alkaline Phosphatase 84 U/L (39-117); Anion Gap 15 (12-20); Aspartate Amino Transferase 15 U/L (5-31); Bilirubin Total 0.2 mg/dL (0.0-1.0); Blood Urea Nitrogen 12 mg/dL (9-16); Calcium 9.6 mg/dL (8.4-10.2); Carbon Dioxide 27 mmol/L (22-29); Chloride 105 mmol/L (96-108); Estimated Glomerular Filt Rate > 60; Glucose Random 71 mg/dL (60-115); Potassium 4.2 mmol/L (3.3-5.1); Sodium 143 mmol/L (135-145); Total Protein 7.2 g/dL (6.5-8.0)
== END 2022-07-31 12:23 | disposition home or self-care (01) ==
LOC: HO.HMGCLDS 12:22
PROVIDERS: PCP Internal Medicine; Visit Provider Internal Medicine
DX: K63.1 Perforation of intestine (nontraumatic) (principal); D64.9 Anemia, unspecified
CPT/HCPCS: 36415; 80053; 85025

== ENCOUNTER 2022-09-21 11:43 | Outpatient (REF) | payer OTHER, SELFPAY ==
[2022-09-21 13:53] LABS: MANUAL DIFF FLAG NO
[2022-09-21 14:06] LABS: Basophils Absolute Auto 0.1 X10*3/uL (0.0-0.2); Basophils Percent Auto 1.6 % (0-2); Eosinophils Absolute Auto 0.1 X10*3/uL (0.0-0.4); Eosinophils Percent Auto 2.5 % (0-4); Hematocrit 31.4 % (37.0-47.0); Hemoglobin 9.1 g/dl (12.0-16.0); Imm Gran Abs Auto 0.01 X10*3/uL (0.00-0.03); Imm Gran Pct Auto 0.2 % (0.0-0.4); Lymphocytes Absolute Auto 1.9 X10*3/uL (1.2-4.9); Lymphocytes Percent Auto 34.6 % (20-40); Mean Corpuscular Hemoglobin 22.9 pg (27.0-33.0); Mean Corpuscular Volume 78.9 fL (80.0-98.0); Mean Platelet Volume 10.2 fL (9.4-12.3); Monocytes Absolute Auto 0.4 X10*3/uL (0.1-1.2); Monocytes Percent Auto 7.7 % (2-11); Neutrophils Percent Auto 53.4 % (45-73); Platelet Count 399 X10*3/uL (160-400); Red Blood Count 3.98 X10*6/uL (4.20-5.50); Red Cell Distribution Width 16.3 % (11.0-16.0); White Blood Count 5.6 X10*3/uL (4.8-10.8)
[2022-09-21 14:33] LABS: Ferritin 5 ng/mL (10-250)
== END 2022-09-21 11:44 | disposition home or self-care (01) ==
LOC: HO.HMGCLDS 11:43
PROVIDERS: PCP Internal Medicine; Visit Provider Internal Medicine
DX: D64.9 Anemia, unspecified (principal); Z98.84 Bariatric surgery status
CPT/HCPCS: 36415; 82728; 85025

== ENCOUNTER → 2022-10-24 15:02 | Outpatient (BNV) | payer OTHER, SELFPAY | PROVIDERS: PCP Internal Medicine; Visit Provider Internal Medicine | DX: D50.9 Iron deficiency anemia, unspecified (principal) | CPT/HCPCS: 99204; 99213 ==

== ENCOUNTER 2022-11-06 11:22 | Outpatient (REF) | payer OTHER, SELFPAY | END 2022-11-06 11:23 | disposition home or self-care (01) | LOC: HO.MDS 11:22 | PROVIDERS: Visit Provider Internal Medicine | DX: D50.9 Iron deficiency anemia, unspecified (principal) | CPT/HCPCS: 96365; J1756 ==

== ENCOUNTER 2022-11-13 07:48 | Outpatient (REF) | payer OTHER, SELFPAY | END 2022-11-13 07:49 | disposition home or self-care (01) | LOC: HO.MDS 07:48 | PROVIDERS: Visit Provider Internal Medicine | DX: D50.8 Other iron deficiency anemias (principal) | CPT/HCPCS: 96365; J1756 ==

== ENCOUNTER 2022-11-27 07:23 | Outpatient (REF) | payer OTHER, SELFPAY | END 2022-11-27 07:24 | disposition home or self-care (01) | LOC: HO.MDS 07:23 | PROVIDERS: Visit Provider Internal Medicine | DX: D50.8 Other iron deficiency anemias (principal) | CPT/HCPCS: 96365; J1756 ==

== ENCOUNTER 2022-12-04 07:27 | Outpatient (REF) | payer OTHER, SELFPAY | END 2022-12-04 07:28 | disposition home or self-care (01) | LOC: HO.MDS 07:27 | PROVIDERS: Visit Provider Internal Medicine | DX: D50.8 Other iron deficiency anemias (principal) | CPT/HCPCS: 96365; J1756 ==

== ENCOUNTER 2022-12-11 07:32 | Outpatient (REF) | payer OTHER, SELFPAY | END 2022-12-11 07:33 | disposition home or self-care (01) | LOC: HO.MDS 07:32 | PROVIDERS: Visit Provider Internal Medicine | DX: D50.8 Other iron deficiency anemias (principal) | CPT/HCPCS: 96365; J1756 ==

== ENCOUNTER 2023-01-10 07:39 | Outpatient (REF) | payer OTHER, SELFPAY | END 2023-01-10 07:40 | disposition home or self-care (01) | LOC: HO.MAMMO 07:39 | PROVIDERS: PCP Internal Medicine; Visit Provider Internal Medicine | DX: Z12.31 Encounter for screening mammogram for malignant neoplasm of breast (principal) | CPT/HCPCS: 77063; 77067 ==

== ENCOUNTER → 2023-01-10 08:00 | Outpatient (BNV) | payer OTHER, SELFPAY | PROVIDERS: PCP Internal Medicine; Visit Provider Radiology Diagnostic Radiology | DX: Z12.31 Encounter for screening mammogram for malignant neoplasm of breast (principal) | CPT/HCPCS: 77063; 77067 ==

== ENCOUNTER 2023-07-22 08:20 | Outpatient (AMB) | payer OTHER, SELFPAY ==
--- NOTE | 2023-07-22 08:37 | AM.OFFWIN_ITS ---
Intake Vital Signs 07/22/23 08:38 Height 5 ft 10 in Weight 245 lb BMI 35.2 BP 112/78 Blood Pressure Location Lt brachial Position Sitting Pulse 82 Pulse Source Pulse Oximeter Temp 97.4 F Temp Source Temporal Artery Scan Pulse Oximetry (%) 97 Oxygen Delivery Method Room Air Intake Visit Reasons: EP ?Strep throat Intake Note: pt is here today for strep throat started 3 days ago Patient Tobacco Use Status: Never used Tobacco Allergies Iodinated Contrast Media [IV CONTRAST] Allergy (Intermediate, Verified 07/22/23 08:40) hives, redness, welts iodine [IODINE] Allergy (Intermediate, Verified 07/22/23 08:40) SKIN RASH, redness, welts, redness Do you need a note to return to daycare/school/sports/work: Yes HPI HPI Comments History of Present Illness Details Patient presents to the walk-in today for sick visit Reports sore throat for last 3 days Grandkids positive for strep throat recently Pain with swallowing Tolerating p.o., denies nausea, vomiting Reports had 2 days of fever, no fever yesterday or today Denies headaches, chest pain, syncope, dizziness, weakness or difficulty managing secretions [facility]LY [facility], [facility] Medical History Anastomotic ulcer BMI 30.0-30.9,adult Bone spur of left foot COVID-19 vaccine series completed Cyst of left kidney Hematuria Malabsorption due to intolerance, not elsewhere classified Obesity (BMI 30-39.9) PONV (postoperative nausea and vomiting) Shingles Surgical History H/O arthroscopy of left knee H/O elbow surgery H/O tubal ligation H/O: hysterectomy S/P gastric bypass [place] teeth extracted Family History Father Cataract Skin cancer Mother HTN (hypertension) Anxiety Depression Obesity Smoker Sister Breast cancer Brother No problems noted. Sister No problems noted. Sister No problems noted. Sister No problems noted. Sister No problems noted. Daughter No problems noted. Daughter No problems noted. Daughter No problems noted. 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 Answers questions appropriately. Fully engaged in examination. Skin: warm, dry, intact HEENT: TMs intact bilaterally, no redness. Posterior pharynx erythematous. Moist oral mucosa. Sclera without icterus or injection. Cardiac: External chest normal in appearance. Respiratory: LSCTAB. Abdomen: without gross distension. Neurological: Oriented to person, place, time and situation. Thought process intact. Psychiatric: Appropriate mood and affect. Good judgment and insight. Results AMB Rapid Strep AMB Rapid Strep Positive Last Edit by Juwan Mei on 07/22/23 09:27 Results Reviewed Results Reviewed: Rapid strep positive Assessment & Plan Assessment & Plan (1) Strep pharyngitis: Code(s): J02.0 - Streptococcal pharyngitis Plan Patient presented to the walk-in today with complaints of sore throat Rapid strep positive Amoxicillin 500 mg twice daily for 10 days Work note provided Rest, drink plenty of fluids. Tylenol or Motrin as needed All questions and concerns were answered, patient agrees with plan Follow with primary care or return to the clinic for any new or worsening symptoms Medications: New amoxicillin 500 mg PO BID 10 days 20 caps 0RF Coding Level of Care Code Est Pt Level 3 (47850) Diagnoses Strep pharyngitis J02.0
[2023-07-22 08:38] VITALS: BP 112/78; PULSE 82; TEMP 36.3; O2SAT 97; BMI 35.2
== END 2023-07-22 10:16 | disposition home or self-care (01) ==
PROVIDERS: PCP Internal Medicine; Visit Provider Registered Nurse Emergency
DX: J02.0 Streptococcal pharyngitis (principal); J02.9 Acute pharyngitis, unspecified
CPT/HCPCS: 87880; 99213

== ENCOUNTER 2023-07-25 09:45 | Outpatient (AMB) | payer OTHER, SELFPAY ==
[2023-07-25 10:15] VITALS: BP 140/80; PULSE 81; TEMP 36.7; O2SAT 96; BMI 34.7
--- NOTE | 2023-07-25 10:15 | AM.OFFWIN_ITS ---
Intake Vital Signs 07/25/23 10:15 Height 5 ft 10 in Weight 242 lb BMI 34.7 BP 140/80 H Blood Pressure Location Lt brachial Position Sitting Pulse 81 Pulse Source Pulse Oximeter Temp 98.1 F Temp Source Temporal Artery Scan Pulse Oximetry (%) 96 Oxygen Delivery Method Room Air Intake Visit Reasons: EP ?hand, Foot and mouth on top of Strep Intake Note: pt is here today for hand foot and mouth on top of strep started 1 week ago Patient Tobacco Use Status: Never used Tobacco Allergies Iodinated Contrast Media [IV CONTRAST] Allergy (Intermediate, Verified 07/25/23 10:42) hives, redness, welts iodine [IODINE] Allergy (Intermediate, Verified 07/25/23 10:42) SKIN RASH, redness, welts, redness Do you need a note to return to daycare/school/sports/work: Yes HPI HPI Comments History of Present Illness Details 58 y/o female patient who presents to [facility] clinic today with c/o mouth sores since 07/21. Pt was diagnosed with Strep and currently on Amoxicillin x 10 days. Pt noticed the sores after taking Amoxicillin, started like cold blisters and now they opened up and crusting. [facility] Medical History Anastomotic ulcer BMI 30.0-30.9,adult Bone spur of left foot COVID-19 vaccine series completed Cyst of left kidney Hematuria Malabsorption due to intolerance, not elsewhere classified Obesity (BMI 30-39.9) PONV (postoperative nausea and vomiting) Shingles Surgical History H/O arthroscopy of left knee H/O elbow surgery H/O tubal ligation H/O: hysterectomy S/P gastric bypass [place] teeth extracted Family History Father Cataract Skin cancer Mother HTN (hypertension) Anxiety Depression Obesity Smoker Sister Breast cancer Brother No problems noted. Sister No problems noted. Sister No problems noted. Sister No problems noted. Sister No problems noted. Daughter No problems noted. Daughter No problems noted. Daughter No problems noted. 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 Erythema, crusting and yellowing on the center. General skin exam: crusts and erythema Lesions: lesion noted (upper/lower lips) Neuro General: patient oriented x3, gait normal and moves all extremities Psych Speech and movement: Normal speech and movement present Assessment & Plan Assessment & Plan (1) Mouth sores: Code(s): K13.79 - Other lesions of oral mucosa Plan: - Impetigo vs cold sores vs allergic reaction - Not consistent with HFM - Will start Mupirocin - Hygiene is improtant. Plan - Advised to call 911 if SOB, Facial Edema, CP Medications: New mupirocin 2% 1 appl topical BID 15 grams 0RF 5 days K13.79 - Other lesions of oral mucosa Coding Level of Care Code Est Pt Level 3 (90661) Diagnoses Mouth sores K13.79 Time Spent (min) 15
== END 2023-07-25 11:20 | disposition home or self-care (01) ==
PROVIDERS: PCP Internal Medicine; Visit Provider Nurse Practitioner Family
DX: K13.79 Other lesions of oral mucosa (principal)
CPT/HCPCS: 99213

== ENCOUNTER 2023-09-27 10:45 | Outpatient (AMB) | payer OTHER, SELFPAY ==
--- NOTE | 2023-09-27 10:52 | A.OFFPC_ITS ---
Vital Signs 09/27/23 10:56 Height 5 ft 10 in Weight 245 lb 6 oz BMI 35.2 BP 112/70 Blood Pressure Location Lt brachial Position Sitting Pulse 76 Pulse Source Pulse Oximeter Pulse Oximetry (%) 96 Oxygen Delivery Method Room Air Intake Visit Reasons: PE Allergies Iodinated Contrast Media [IV CONTRAST] Allergy (Intermediate, Verified 09/27/23 10:58) hives, redness, welts iodine [IODINE] Allergy (Intermediate, Verified 09/27/23 10:58) SKIN RASH, redness, welts, redness Medication List - Last Reconciled 09/27/23 by Fitz Ballard MD [id number] 45 mg iron- 800 mcg-120 mcg (Bariatric Multivitamins) 1 cap PO DAILY pantoprazole 40 mg PO Q12H sucralfate 10 mL PO BID Tobacco use date assessed: 09/27/23 Dental Screening Dental Screen Date: 09/27/23 Did you have a dental visit in the last 12 months?: Yes Did you have a dental problem in the last 6 months where you did not have access to dental care?: No Was dental information given to patient?: Patient has dentist HPI PE HPI Details Patient is a 58-year-old female came in for physical exam Labs done June of this year showed resolved anemia with normal ferritin level Need paperwork filled for job Patient visit Homes of low income housing 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 Talat Cruz bariatric surgery at [facility], for ongoing left upper quadrant discomfort off and on Patient had original surgery at [facility]. breast exam was not done today, patient says that she does her own breast exam Mammogram up-to-date Colonoscopy dec 2021 Dr Shea [facility] [place] . History of hysterectomy secondary to fibroids no longer having Pap smears. [facility] Medical History COVID-19 vaccine series completed PONV (postoperative nausea and vomiting) Anastomotic ulcer Shingles Hematuria Bone spur of left foot Cyst of left kidney BMI 30.0-30.9,adult Obesity (BMI 30-39.9) Malabsorption due to intolerance, not elsewhere classified Surgical History H/O elbow surgery H/O tubal ligation [place] teeth extracted H/O arthroscopy of left knee H/O: hysterectomy S/P gastric bypass Family History Father Cataract Skin cancer Mother HTN (hypertension) Anxiety Depression Obesity Smoker Sister Breast cancer Brother No problems noted. Sister No problems noted. Sister No problems noted. Sister No problems noted. Sister No problems noted. Daughter No problems noted. Daughter No problems noted. Daughter No problems noted. 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 1. Little interest or pleasure in doing things: not at all 2. Feeling down, depressed, or hopeless: not at all 3. Trouble falling or staying asleep, or sleeping too much: not at all 4. Feeling tired or having little energy: not at all 5. Poor appetite or overeating: not at all 6. Feeling bad about yourself - or that you are a failure or have let yourself or your family down: not at all 7. Trouble concentrating on things, such as reading the newspaper or watching television: not at all 8. Moving or speaking so slowly that other people could have noticed. Or the opposite - being so fidgety or restless that you have been moving around a lot more than usual: not at all 9. Thoughts that you would be better off or of hurting yourself in some way: not at all Total score: 0 Depression Screening Interpretation: Negative Depression Screening Done: Yes 02223 - PHQ-9 Billing: Yes Source: Developed by Drs. Dontrell Hughes, Taylor Crowell, Marlo Houser and colleagues, with an educational robel from [employer]. Thrive Questionnaire Date Thrive assessed: 09/27/23 I am a: Patient What is your living situation today?: I have a steady place to live Within the past 12 months, did the food you bought not last and you didn't have the money to get more?: Never true Within the past 12 months, did you worry whether your food would run out before you got money to buy more?: Never true Do you have trouble paying for medicines?: No Do you have trouble getting transportation to medical appointments?: No Do you have trouble paying your heating and electricity bill?: No Do you have trouble taking care of your child, family member or friend?: No Do you have trouble with day-to-day activities such as bathing, preparing meals, shopping, managing finances, etc.?: No Are you currently unemployed and looking for a job?: No Are you interested in more education?: No Please select the resources that you would like help with: None Currently or been in a relationship where the following occur: no concerns reported THRIVE Score: 0 AUDIT C Alcohol Use Questionnaire (AUDIT-C) 1. How often do you have a drink containing alcohol?: Never 3. How often do you have six or more drinks on one occasion?: Never Total Score: 0 Score Reviewed/Action Taken: Yes VANESSA-7 AMB Questionnaire VANESSA-7 Date VANESSA - 7 assessed: 09/27/23 Feeling nervous, anxious, or on edge: 0 = Not at all Not being able to stop or control worryin = Not at all Worrying too much about different things: 0 = Not at all Trouble relaxin = Not at all Being so restless that it is hard to sit still: 0 = Not at all Becoming easily annoyed or irritable: 0 = Not at all Feeling afraid as if something awful might happen: 0 = Not at all Total VANESSA-7 score (0-4 normal; 5-9 mild; 10-14 moderate; 15-21 severe): 0 Source: Developed by Drs. Dontrell Hughes, Taylor Crowell, Marlo Houser and colleagues, with an educational robel from [employer]. VANESSA-7 Assessment Billing VANESSA-7 Assessment Tool: VANESSA-7 Assessment 88873 Review of Systems Const Denies chills, Denies fever(s) and Denies headache(s) Eyes Denies blurry vision ENT Denies headache(s), Denies nasal discharge, Denies nasal obstruction, Denies omar nophagia and Denies sinus pain Card Denies chest pain at rest and Denies chest pain with activity Resp Denies cough and Denies hemoptysis GI Denies diarrhea, Denies odynophagia, Denies vomiting and Denies hematemesis Reports as per HPI Musc Denies abnormal gait Skin/Breast Reports as per HPI Neuro Denies Neuro-related abnormal movements, Denies Abnormal speech present, Denies abnormal gait, Denies headache(s) and Denies Sensory deficit (Neuro) Psych Denies mood swings and Denies paranoia Endo Reports as per HPI Bahman/Lymph Reports as per HPI Aller/Immun Reports as per HPI Physical exam (Primary Care) Vital Signs: Last Vital Signs Pulse 76 09/27/23 10:56 BP 112/70 09/27/23 10:56 Pulse Ox 96 09/27/23 10:56 Oxygen Delivery Method Room Air 09/27/23 10:56 BMI result Body Mass Index 35.2 Tobacco/Smoking Status: Tobacco use Status Tobacco use date assessed 09/27/23 09/27/23 11:00 Patient Tobacco Use Status Never used Tobacco 09/27/23 10:53 e-Cigarette/Vaping Use Never Used 09/27/23 10:53 PHQ-9: PHQ-9 Score PHQ-9: Total score 0 09/27/23 11:18 Depression Screening Interpretation: Negative Thrive Assessment: Date of Thrive Assessment Date Thrive assessed 09/27/23 09/27/23 11:00 Currently or been in a relationship where the following occur: no concerns reported Const General: cooperative, comfortable and no acute distress Orientation/consciousness: patient oriented x3 HENMT Head: Yes normocephalic and Yes atraumatic Eyes General: appearance normal, both eyes and all related structures Pupils: Equal, round and reactive pupils present EOM: EOMs intact bilaterally Neck Neck: Yes supple and No lymphadenopathy Thyroid: Thyroid normal Lymphatic: no lymphadenopathy noted Resp Effort & Inspection: normal respiratory effort and able to speak in complete sentences Auscultation: clear to auscultation bilaterally Cardio Heart sounds: S1 normal heart sound present and S2 normal heart sound present GI Palpation (GI): Soft to palpation and nontender Auscultation: normal bowel sounds General: Yes no CVA tenderness Back/Spine/Pelvis Back: no CVA tenderness Skin General skin exam: elasticity normal and turgor normal Neuro General: patient oriented x3 and gait normal Cranial nerves: Yes Equal, round and reactive pupils present Speech: No Abnormal speech present Sensory Exam: No Sensory deficit (Neuro) Coordination: tandem gait normal and Romberg test negative Extrem General: Yes normal exam except as noted and No edema Assessment and Plan Assessment & Plan (1) Physical exam, annual: Code(s): Z00.00 - Encounter for general adult medical examination without abnormal findings (2) Obesity (BMI 30-39.9): Code(s): E66.9 - Obesity, unspecified (3) History of bariatric surgery: Code(s): Z98.84 - Bariatric surgery status Plan Patient is a 58-year-old female came in for physical exam Labs done June of this year showed resolved anemia with normal ferritin level Need paperwork filled for job Patient visit Homes of low income housing 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 Talat Cruz bariatric surgery at [facility], for ongoing left upper quadrant discomfort off and on Patient had original surgery at [facility]. breast exam was not done today, patient says that she does her own breast exam Mammogram up-to-date Colonoscopy dec 2021 Dr Shabbir PIÑA . History of hysterectomy secondary to fibroids no longer having Pap smears. Orders: Orders Comprehensive [place]. Panel Fast Today E66.9 - Obesity, unspecified, Z00.00 - Encounter for general adult medical examination without abnormal findings, Z98.84 - Bariatric surgery status Vitamin D 25-OH (D2 and D3) Today E66.9 - Obesity, unspecified, Z00.00 - Encounter for general adult medical examination without abnormal findings, Z98.84 - Bariatric surgery status Magnesium Today E66.9 - Obesity, unspecified, Z00.00 - Encounter for general adult medical examination without abnormal findings, Z98.84 - Bariatric surgery status Lipid Panel Today E66.9 - Obesity, unspecified, Z00.00 - Encounter for general adult medical examination without abnormal findings, Z98.84 - Bariatric surgery status Zinc Today E66.9 - Obesity, unspecified, Z00.00 - Encounter for general adult medical examination without abnormal findings, Z98.84 - Bariatric surgery status Vitamin B12 Today E66.9 - Obesity, unspecified, Z00.00 - Encounter for general adult medical examination without abnormal findings, Z98.84 - Bariatric surgery status TSH reflex Free T4 Today E66.9 - Obesity, unspecified, Z00.00 - Encounter for general adult medical examination without abnormal findings, Z98.84 - Bariatric surgery status Coding Level of Care Code Est Pt Prev Care 40-64y(35038) Diagnoses Physical exam, annual Z00.00 Obesity (BMI 30-39.9) E66.9 History of bariatric surgery Z98.84 Additional Codes VANESSA-7 Assessment Billing - VANESSA-7 Assessment Tool: VANESSA-7 Assessment [id number] ([id number])
[2023-09-27 10:56] VITALS: BP 112/70; PULSE 76; O2SAT 96; BMI 35.2
== END 2023-09-27 11:49 | disposition home or self-care (01) ==
PROVIDERS: Visit Provider Internal Medicine
DX: Z00.00 Encounter for general adult medical examination without abnormal findings (principal); E66.9 Obesity, unspecified; Z98.84 Bariatric surgery status; Z68.35 Body mass index [BMI] 35.0-35.9, adult
CPT/HCPCS: 99396

== ENCOUNTER 2023-09-28 09:39 | Outpatient (REF) | payer OTHER, SELFPAY | END 2023-09-28 09:40 | disposition home or self-care (01) | LOC: HO.HMGCLDS 09:39 | PROVIDERS: PCP Internal Medicine; Visit Provider Internal Medicine | DX: Z13.89 Encounter for screening for other disorder (principal) ==

== ENCOUNTER 2023-10-01 07:41 | Outpatient (REF) | payer OTHER, SELFPAY ==
[2023-10-01 09:02] LABS: Vitamin B12 531 pg/mL (200-900)
[2023-10-01 09:07] LABS: Alanine Aminotransferase 14 U/L (0-31); Albumin Level 4.4 g/dL (3.5-5.0); Alkaline Phosphatase 81 U/L (39-117); Anion Gap 13 (12-20); Aspartate Amino Transferase 22 U/L (5-31); Bilirubin Total 0.5 mg/dL (0.0-1.0); Blood Urea Nitrogen 17 mg/dL (9-16); Calcium 9.9 mg/dL (8.4-10.2); Carbon Dioxide 26 mmol/L (22-29); Chloride 106 mmol/L (96-108); Cholesterol 216 mg/dL (<200); Estimated Glomerular Filt Rate > 60; Glucose Fasting 87 mg/dL (60-99); HDL Cholesterol 69 mg/dL (>40); LDL Cholesterol Calculated 130 mg/dL (<100); Potassium 4.1 mmol/L (3.3-5.1); Sodium 141 mmol/L (135-145); TSH reflex Free T4 2.68 uIU/mL (0.32-4.0); Total Protein 7.5 g/dL (6.5-8.0); Triglycerides 86 mg/dL (<150)
[2023-10-04 13:38] LABS: Zinc 79 mcg/dL (60-130)
[2023-10-06 16:02] LABS: Vitamin D 25-OH, D2 <4 ng/mL; Vitamin D 25-OH, D3 33 ng/mL; Vitamin D 25-OH, Total 33 ng/mL (30-100)
== END 2023-10-01 07:42 | disposition home or self-care (01) ==
LOC: HO.LAB 07:41
PROVIDERS: PCP Internal Medicine; Visit Provider Internal Medicine
DX: Z00.00 Encounter for general adult medical examination without abnormal findings (principal); E66.9 Obesity, unspecified; Z98.84 Bariatric surgery status
CPT/HCPCS: 36415; 80053; 80061; 82306; 82607; 83735; 84443; 84630

== ENCOUNTER 2024-01-16 07:50 | Outpatient (REF) | payer OTHER, SELFPAY ==
--- NOTE | ~2024-01-16 | MM_ITS ---
EXAMINATION: MM SCREENING DIGITAL BREAST TOMOSYNTHESIS, BILATERAL CLINICAL INFORMATION: Screening. Asymptomatic. COMPARISON: Mammography: Comparison is made with available priors TECHNIQUE: Digital breast mammography with tomosynthesis is performed in both the craniocaudal and mediolateral oblique views along with computer-aided detection (CAD). FINDINGS: There are scattered areas of fibroglandular density (ACR BI-RADS breast composition Category b). There are no significant masses, abnormal calcifications, or other abnormalities. MM/MM tomosynthesis screening BI IMPRESSION: No mammographic evidence of malignancy. ASSESSMENT: BI-RADS BI-RADS 1 - Negative RECOMMENDATION: Routine annual mammography screening. 1 year F/U This examination should not preclude the clinical evaluation of a suspicious palpable abnormality. This patient's information was entered into a reminder system with a target due date for their next mammogram. Electronically signed by: Constance Watson DO 01/28/2024 09:25 AM EDT
== END 2024-01-16 07:51 | disposition home or self-care (01) ==
LOC: HO.MAMMO 07:50
PROVIDERS: PCP Internal Medicine; Visit Provider Internal Medicine
DX: Z12.31 Encounter for screening mammogram for malignant neoplasm of breast (principal)
CPT/HCPCS: 77063; 77067

== ENCOUNTER → 2024-01-16 08:15 | Outpatient (BNV) | payer OTHER, SELFPAY | PROVIDERS: PCP Internal Medicine; Visit Provider Internal Medicine | DX: Z12.31 Encounter for screening mammogram for malignant neoplasm of breast (principal) | CPT/HCPCS: 77063; 77067 ==

== ENCOUNTER 2024-06-08 08:18 | Outpatient (AMB) | payer OTHER, SELFPAY ==
--- NOTE | 2024-06-08 08:48 | MHC.OFFWIV ---
Intake Vital Signs 06/08/24 08:49 Weight 255 lb BP 108/72 Blood Pressure Location Rt brachial Position Sitting Pulse 77 Pulse Source Pulse Oximeter Temp 98.2 F Temp Source Oral Pulse Oximetry (%) 99 Oxygen Delivery Method Room Air Intake Visit Reasons: EP-sore in neck, cough Intake Note: Patient here for sore on nose of right nostril and cough that has been present since last Saturday. Patient Tobacco Use Status: Never used Tobacco Allergies Iodinated Contrast Media [IV CONTRAST] Allergy (Intermediate, Verified 06/08/24 08:50) hives, redness, welts iodine [IODINE] Allergy (Intermediate, Verified 06/08/24 08:50) SKIN RASH, redness, welts, redness Do you need a note to return to daycare/school/sports/work: No HPI HPI Comments History of Present Illness Details 58 y/o female patient who presents to the walk in clinic with c/o Skin infection right nostril/nose since Saturday. She is recovering from a cold/cough, has been rubbing and blowing nose. [facility] Medical History (Updated 06/08/24 @ 09:12 by Mira Moore NP) Impetigo COVID-19 vaccine series completed PONV (postoperative nausea and vomiting) Anastomotic ulcer Shingles Hematuria Bone spur of left foot Cyst of left kidney BMI 30.0-30.9,adult Obesity (BMI 30-39.9) Malabsorption due to intolerance, not elsewhere classified Surgical History H/O elbow surgery H/O tubal ligation [place] teeth extracted H/O arthroscopy of left knee H/O: hysterectomy S/P gastric bypass Family History Father Cataract Skin cancer Mother HTN (hypertension) Anxiety Depression Obesity Smoker Sister Breast cancer Brother No problems noted. Sister No problems noted. Sister No problems noted. Sister No problems noted. Sister No problems noted. Daughter No problems noted. Daughter No problems noted. Daughter No problems noted. 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 Small Pustules with dolan crusting layers, erythematous edges. Neuro General: patient oriented x3, gait normal and moves all extremities Psych Speech and movement: Normal speech and movement present Assessment & Plan Assessment & Plan (1) Impetigo: Code(s): L01.00 - Impetigo, unspecified Plan: Ordered Topical Abx Keep Area clean and dry. Medications: New mupirocin 2% 1 appl topical BID 22 grams 0RF 10 days L01.00 - Impetigo, unspecified Coding Level of Care Code Est Pt Level 4 (84124) Diagnoses Impetigo L01.00 Time Spent (min) 20
[2024-06-08 08:49] VITALS: BP 108/72; PULSE 77; TEMP 36.8; O2SAT 99
== END 2024-06-08 09:09 | disposition home or self-care (01) ==
PROVIDERS: PCP Internal Medicine; Visit Provider Nurse Practitioner Family
DX: L01.00 Impetigo, unspecified (principal)

== ENCOUNTER 2024-10-02 07:58 | Outpatient (AMB) | payer OTHER, SELFPAY ==
--- OUTSIDE RECORDS SUMMARY | 2024-10-02 08:01 | XMS_ITS | Clinical Summary ---
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 Active Cholecalciferol 100 MCG (4000 UT) capsule Take 1 capsule by mouth 1 (one) time each day Active docusate sodium (COLACE) 100 MG capsule Take 100 mg by mouth 2 (two) times a day if needed for constipation Active Multiple Vitamins-Minera ls (Bariatric Multivitamins/I zachary) capsule Take 1 capsule by mouth 1 (one) time each day Active ondansetron (ZOFRAN) 4 MG tablet Take 4 mg by mouth every 8 (eight) hours if needed for nausea or vomiting Active pantoprazole (PROTONIX) 40 MG EC tablet Take 40 mg by mouth in the morning and 40 mg in the evening. Do not crush, chew, or split. . 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/2021 Cyst of kidney 04/27/2021 Hematuria, not otherwise specified 04/27/2021 Malabsorption due to intolerance 04/27/2021 Body mass index 30+ - obesity <39.0-39.9> 2020 Postoperative nausea and vomiting 04/27/2021 Herpes zoster 04/27/2021 Family History Medical History Relation Comments Cataracts Father Skin cancer Father Anxiety disorder Mother Depression Mother Hypertension Mother Obesity Mother Breast cancer Sister Relation Status Comments Father Mother Sister Social History Tobacco Use Types Packs/Day Years Used Date Smoking Tobacco: Never Smokeless Tobacco: Never Tobacco Cessation:Counseling Given: Not Answered Comments Unknown Sex and Gender Information Value Date Recorded Sex Assigned at Not on file Legal Sex Female 3:58 PM EST Gender Identity Not on file Sexual Orientation Not on file Last Filed Vital Signs Vital Sign Reading Time Taken Comments Blood Pressure 100/66 05/23/2023 8:28 AM EST Pulse 106 05/23/2023 8:28 AM EST Temperature - - Respiratory Rate - - Oxygen Saturation 100% 05/23/2023 8:28 AM EST Inhaled Oxygen Concentration - - Weight 108 kg (237 lb) 05/23/2023 8:28 AM EST Height 175.3 cm (5' 9 ) 05/23/2023 8:28 AM EST Body Mass Index 35 05/23/2023 8:28 AM EST Plan of Treatment Health Maintenance Due Date Last Done Comments Breast Cancer Screening 1965 Hepatitis B Vaccine (1 of 3 - 19+ 3-dose series) 06/26 Pneumococcal Vaccine: 50+ Years (1 of 2 - PCV) 985 Colorectal Cancer Screening: Annual FOBT 2014 Colorectal Cancer Screening: Colonoscopy 2014 Colorectal Cancer Screening: Sigmoidoscopy 2014 Influenza Vaccine (Season Ended) 2024 Insurance [facility] Care Teams Dry Wall Plasterer Relationship Specialty Start Date End Date Fitz Ballard MD [place] [address] PCP - General Internal Medicine 04/24/21
--- NOTE | 2024-10-02 08:12 | A.OFFPC_ITS ---
Vital Signs 10/02/24 08:18 Height 5 ft 10 in Weight 253 lb BMI 36.3 BP 126/80 Blood Pressure Location Rt brachial Position Sitting Respiration 18 Pulse 80 Pulse Source Pulse Oximeter Temp 98.4 F Temp Source Oral Pulse Oximetry (%) 96 Oxygen Delivery Method Room Air Intake Visit Reasons: Annual PE Allergies Iodinated Contrast Media [IV CONTRAST] Allergy (Intermediate, Verified 10/02/24 08:14) hives, redness, welts iodine [IODINE] Allergy (Intermediate, Verified 10/02/24 08:14) SKIN RASH, redness, welts, redness Medication List - Last Reconciled 10/02/24 by Fitz Ballard MD [id number]-[id number] K 45 mg iron- 800 mcg-120 mcg (Bariatric Multivitamins) 1 cap PO DAILY mupirocin 2% 1 appl topical BID 10 days omeprazole mg PO sucralfate 10 mL PO BID tirzepatide 2.5 mg subcut QWEEK Tobacco use date assessed: 10/02/24 Dental Screening Dental Screen Date: 10/02/24 Did you have a dental visit in the last 12 months?: No Did you have a dental problem in the last 6 months where you did not have access to dental care?: No Was dental information given to patient?: Patient has dentist HPI Annual PE HPI Details Physical exam appointment - The patient is a 59-year-old female pr esenting for a wellness examination and work physical assessment. - She reports taking omeprazole for harry gement of GERD. - She experiences migraine headaches for which she takes unspecified medication. - She is currently managing obesity with Zepbound for weight loss. Through weight loss management - She has a history of osteoarthritis vt rticularly affecting her lower back and knees. - She underwent a hyste[facility] in [facility] due to fibroids. - She has a history of bariatric surgery for weight management. - She denies any current issues with fela rrhea, constipation, nausea, or vomiting. - Her previous labs in September and June in dicated normal complete blood count, electrolytes, kidney function, and liver enzymes. 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 - She makes home visits and assists fami lies, particularly with social work. - She takes a multivitamin to maintain [facility]. - The patient has undergone weight loss management with medication and has a history of bariatric surgery. Family History: - Sister had breast cancer diagnosed at age 35-40. - Paternal family history of liver cance r, kidney cancer, and skin cancer. Health Maintenance - Mammogram completed in December 2021. - Colonoscopy completed in December. - Scheduled to receive Tetanus and Pertu ssis (Tdap) vaccine today. - Vitamin levels to be checked, with an emphasis on Vitamin D. Patient Instructions - Schedule follow-up for any new symptom s or issues. - Maintain current medication regimen. - Confirm lab and test schedules with [facility]. - Attend for Tetanus and Pertussis vacci ne today. Review of Systems - General: No fever no chills - Neurological: No headaches no dizzin ess - Ear nose throat: No sore throat no hearing difficulty no ear pain - Cardiovascular: No syncope, no chest pain, no palpitations - Gastrointestinal: No nausea vomiting or diarrhea - Endocrine: No polyuria polydipsia no heat intolerance - Genitourinary: No dysuria - Skin: No new complaints Physical Exam General: Cooperative, healthy appearing, comfortable, no acute distress Orientation: Patient oriented x3 Limitations: None Head: Normal to inspection Ears: Within normal limit visually Nose: Normal external nose present Face and sinus: Normal facial exam Eyes: Appearance normal, extraocular movement intact pupils reactive Neck: Normal visual inspection and supple Respiratory: Normal respiratory effort and able to speak in complete sentences. Clear to auscultation, no stridor Cardiovascular: S1 and S2 RRR GI: Normal to inspection. Soft to palpation and nontender Skin: Turgor normal, no acute findings Neuro: Patient oriented x3, motor sensory intact, balance intact, tandem pass Extremities: Normal to inspection, range of motion intact [facility] Medical History Impetigo COVID-19 vaccine series completed PONV (postoperative nausea and vomiting) Anastomotic ulcer Shingles Hematuria Bone spur of left foot Cyst of left kidney BMI 30.0-30.9,adult Obesity (BMI 30-39.9) Malabsorption due to intolerance, not elsewhere classified Surgical History H/O elbow surgery H/O tubal ligation [place] teeth extracted H/O arthroscopy of left knee H/O: hysterectomy S/P gastric bypass Family History Father Cataract Skin cancer Mother HTN (hypertension) Anxiety Depression Obesity Smoker Sister Breast cancer Brother No problems noted. Sister No problems noted. Sister No problems noted. Sister No problems noted. Sister No problems noted. Daughter No problems noted. Daughter No problems noted. Daughter No problems noted. 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 1. Little interest or pleasure in doing things: not at all 2. Feeling down, depressed, or hopeless: not at all 3. Trouble falling or staying asleep, or sleeping too much: not at all 4. Feeling tired or having little energy: not at all 5. Poor appetite or overeating: not at all 6. Feeling bad about yourself - or that you are a failure or have let yourself or your family down: not at all 7. Trouble concentrating on things, such as reading the newspaper or watching television: not at all 8. Moving or speaking so slowly that other people could have noticed. Or the opposite - being so fidgety or restless that you have been moving around a lot more than usual: not at all 9. Thoughts that you would be better off or of hurting yourself in some way: not at all Total score: 0 Depression Screening Interpretation: Negative Depression Screening Done: Yes 52991 - PHQ-9 Billing: Yes Source: Developed by Drs. Dontrell Hughes, Taylor Crowell, Marlo Houser and colleagues, with an educational robel from [employer]. Thrive Questionnaire Date Thrive assessed: 10/02/24 I am a: Patient What is your living situation today?: I have a steady place to live Within the past 12 months, did the food you bought not last and you didn't have the money to get more?: Never true Within the past 12 months, did you worry whether your food would run out before you got money to buy more?: Never true Do you have trouble paying for medicines?: No Do you have trouble getting transportation to medical appointments?: No Do you have trouble paying your heating and electricity bill?: No Do you have trouble taking care of your child, family member or friend?: No Do you have trouble with day-to-day activities such as bathing, preparing meals, shopping, managing finances, etc.?: No Are you currently unemployed and looking for a job?: Yes Are you interested in more education?: No Please select the resources that you would like help with: None Currently or been in a relationship where the following occur: No concerns reported THRIVE Score: 0 AUDIT C Alcohol Use Questionnaire (AUDIT-C) 1. How often do you have a drink containing alcohol?: Never Total Score: 0 VANESSA-7 AMB Questionnaire VANESSA-7 Date VANESSA - 7 assessed: 10/02/24 Feeling nervous, anxious, or on edge: 0 = Not at all Not being able to stop or control worryin = Not at all Worrying too much about different things: 0 = Not at all Trouble relaxin = Not at all Being so restless that it is hard to sit still: 0 = Not at all Becoming easily annoyed or irritable: 0 = Not at all Feeling afraid as if something awful might happen: 0 = Not at all Total VANESSA-7 score (0-4 normal; 5-9 mild; 10-14 moderate; 15-21 severe): 0 Source: Developed by Drs. Dontrell Hughes, Taylor Crowell, Marlo Houser and colleagues, with an educational robel from [employer]. Physical exam (Primary Care) Vital Signs: Last Vital Signs Temp 98.4 F 10/02/24 08:18 Pulse 80 10/02/24 08:18 Resp 18 10/02/24 08:18 BP 126/80 10/02/24 08:18 Pulse Ox 96 10/02/24 08:18 Oxygen Delivery Method Room Air 10/02/24 08:18 Tobacco/Smoking Status: Tobacco use Status Tobacco use date assessed 10/02/24 10/02/24 08:22 Patient Tobacco Use Status Never used Tobacco 10/02/24 08:12 e-Cigarette/Vaping Use Never Used 10/02/24 08:12 PHQ-9: PHQ-9 Score PHQ-9: Total score 0 10/02/24 08:48 Depression Screening Interpretation: Negative Thrive Assessment: Date of Thrive Assessment Date Thrive assessed 10/02/24 10/02/24 08:22 Currently or been in a relationship where the following occur: No concerns reported Immunizations Boostrix Tdap 2.5 Lf unit-8 mcg-5 Lf/0.5 mL intramuscular syringe Performing Provider: Fitz Ballard MD Performing Location: [facility] [place] [facility] Administered by: Jocy Orta RN on 10/02/24 08:47 Dose Route Admin Location Dispensed Lot Number Expiration Date [facility] 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 0.5 mL [id number] 12/23/26 [id number] [employer] VIS Given Date VIS Provided VIS Publication Date 10/02/24 Single Vaccine 24 Eligibility Eligibility Date Funding Source Not [facility] Eligible 10/02/24 Private Coding Level of Care Code Est Pt Level 3 (89111) Est Pt Prev Care 40-64y(14390) Diagnoses Encounter for general adult medical examination with abnormal findings Z00.01 Class 2 obesity due to excess calories without serious comorbidity with body mass index (BMI) of 36.0 to 36.9 in adult E66.812; E66.09; Z68.36 Obesity classification: adult class 2 (BMI 35 - 39.9) Serious obesity comorbidity presence: without serious comorbidity Body mass index: BMI 36.0-36.9 Chronic GERD K21.9 S/P gastric bypass Z98.84 Primary osteoarthritis of right knee M17.11 Osteoarthritis type: primary Screening-pulmonary TB Z11.1 Additional Codes PHQ-9 - 67665 - PHQ-9 Billing: Yes ([id number]) Assessment & Plan Assessment & Plan (1) Encounter for general adult medical examination with abnormal findings: Code(s): Z00.01 - Encounter for general adult medical examination with abnormal findings Category: Medical (2) Obesity due to excess calories: Code(s): E66.09 - Other obesity due to excess calories Category: Medical Qualifiers: Obesity classification: adult class 2 (BMI 35 - 39.9) Serious obesity comorbidity presence: without serious comorbidity Body mass index: BMI 36.0- 36.9 Qualified Code(s): E66.812 - Obesity, class 2; E66.09 - Other obesity due to excess calories; Z68.36 - Body mass index [BMI] 36.0-36.9, adult (3) Chronic GERD: Code(s): K21.9 - Gastro-esophageal reflux disease without esophagitis Category: Medical (4) S/P gastric bypass: Comment: NAHUN , Dr. Lim Code(s): Z98.84 - Bariatric surgery status Category: Surgical (5) Osteoarthritis of right knee: Code(s): M17.11 - Unilateral primary osteoarthritis, right knee Category: Medical Qualifiers: Osteoarthritis type: primary Qualified Code(s): M17.11 - Unilateral primary osteoarthritis, right knee (6) Screening-pulmonary TB: Code(s): Z11.1 - Encounter for screening for respiratory tuberculosis Category: Medical Plan Physical exam appointment - The patient is a 59-year-old female presenting for a wellness examination and work physical assessment. - She reports taking omeprazole for management of GERD. - She experiences migraine headaches for which she takes unspecified medication. - She is currently managing obesity with Zepbound for weight loss. Through weight loss management - She has a history of osteoarthritis particularly affecting her lower back and knees. - She underwent a hysterectomy in the past due to fibroids. - She has a history of bariatric surgery for weight management. - She denies any current issues with diarrhea, constipation, nausea, or vomiting. - Her previous labs in September and June indicated normal complete blood count, electrolytes, kidney function, and liver enzymes. 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 - She makes home visits and assists families, particularly with social work. - She takes a multivitamin to maintain overall health. - The patient has undergone weight loss management with medication and has a history of bariatric surgery. Family History: - Sister had breast cancer diagnosed at age 35-40. - Paternal family history of liver cancer, kidney cancer, and skin cancer. Health Maintenance - Mammogram completed in December 2021. - Colonoscopy completed in December 2021. - Scheduled to receive Tetanus and Pertussis (Tdap) vaccine today. - Vitamin levels to be checked, with an emphasis on Vitamin D. Patient Instructions - Schedule follow-up for any new symptoms or issues. - Maintain current medication regimen. - Confirm lab and test schedules with the clinic. - Attend for Tetanus and Pertussis vaccine today. Follow-up 1 year physical exam Orders: Orders Complete Blood Count Auto Diff Today M17.11 - Unilateral primary osteoarthritis, right knee, Z00.01 - Encounter for general adult medical examin ation with abnormal findings, Z11.1 - Encounter for screening for respiratory tuberculosis, Z98.84 - Bariatric surgery status Comprehensive [place]. Panel Fast Today M17.11 - Unilateral primary osteoarthritis, right knee, Z00.01 - Encounter for general adult medical examination with abnormal findings, Z11.1 - Encounter for screening for respiratory tuberculosis, Z98.84 - Bariatric surgery status Lipid Panel Today M17.11 - Unilateral primary osteoarthritis, right knee, Z00.01 - Encounter for general adult medical examination with abnormal findings, Z11.1 - Encounter for screening for respiratory tuberculosis, Z98.84 - Bariatric surgery status TSH reflex Free T4 Today M17.11 - Unilateral primary osteoarthritis, right knee, Z00.01 - Encounter for general adult medical examination with abnormal findings, Z11.1 - Encounter for screening for respiratory tuberculosis, Z98.84 - Bariatric surgery status Vitamin B12 Today M17.11 - Unilateral primary osteoarthritis, right knee, Z00.01 - Encounter for general adult medical examination with abnormal findings, Z11.1 - Encounter for screening for respiratory tuberculosis, Z98.84 - Bariatric surgery status T Spot TB Today M17.11 - Unilateral primary osteoarthritis, right knee, Z00.01 - Encounter for general adult medical examination with abnormal findings, Z11.1 - Encounter for screening for respiratory tuberculosis, Z98.84 - Bariatric surgery status Vitamin A Today M17.11 - Unilateral primary osteoarthritis, right knee, Z00.01 - Encounter for general adult medical examination with abnormal findings, Z11.1 - Encounter for screening for respiratory tuberculosis, Z98.84 - Bariatric surgery status Vitamin D 25-OH (D2 and D3) Today M17.11 - Unilateral primary osteoarthritis, right knee, Z00.01 - Encounter for general adult medical examination with abnor mal findings, Z11.1 - Encounter for screening for respiratory tuberculosis, Z98.84 - Bariatric surgery status TDaP Immunization Today Z23 - Encounter for immunization
[2024-10-02 08:18] VITALS: BP 126/80; PULSE 80; RESP 18; TEMP 36.9; O2SAT 96; BMI 36.3
== END 2024-10-02 09:45 | disposition home or self-care (01) ==
LOC: HO.HMCC 07:58
PROVIDERS: PCP Internal Medicine; Visit Provider Internal Medicine
DX: Z00.01 Encounter for general adult medical examination with abnormal findings (principal); E66.812 Obesity, class 2; Z68.36 Body mass index [BMI] 36.0-36.9, adult; K21.9 Gastro-esophageal reflux disease without esophagitis; Z98.84 Bariatric surgery status; M17.11 Unilateral primary osteoarthritis, right knee; Z11.1 Encounter for screening for respiratory tuberculosis; Z23 Encounter for immunization

== ENCOUNTER → 2024-10-02 07:58 | Outpatient (BNVA) | payer OTHER, SELFPAY | PROVIDERS: PCP Internal Medicine; Visit Provider Internal Medicine | DX: Z00.01 Encounter for general adult medical examination with abnormal findings (principal); K21.9 Gastro-esophageal reflux disease without esophagitis; E66.812 Obesity, class 2; E66.09 Other obesity due to excess calories; M17.11 Unilateral primary osteoarthritis, right knee; Z23 Encounter for immunization; Z98.84 Bariatric surgery status; Z68.36 Body mass index [BMI] 36.0-36.9, adult | CPT/HCPCS: 90471; 90715; 96127 ==

== ENCOUNTER 2024-10-05 07:49 | Outpatient (REF) | payer OTHER, SELFPAY ==
--- OUTSIDE RECORDS SUMMARY | 2024-10-05 07:52 | XMS_ITS | Clinical Summary ---
Author Organization [facility] Address [address] [place] [address] Phone Care Team Providers Care Feed Research Technician Name Role Phone Fitz Ballard MD Primary Care Provider [phone] Allergies Active Allergy Reactions Criticality Noted Date [...] 2014 Influenza Vaccine (Season Ended) 2024 Insurance [facility] Teams Feed Research Technician Relationship Specialty Start Date End Date Fitz Ballard MD [facility] [place] [address] PCP - General Internal Medicine 04/24/21
[2024-10-05 10:19] LABS: MANUAL DIFF FLAG NO
[2024-10-05 10:26] LABS: Basophils Absolute Auto 0.1 X10*3/uL (0.0-0.2); Basophils Percent Auto 1.3 % (0-2); Eosinophils Absolute Auto 0.2 X10*3/uL (0.0-0.4); Eosinophils Percent Auto 4.4 % (0-4); Hematocrit 40.9 % (37.0-47.0); Hemoglobin 12.7 g/dl (12.0-16.0); Imm Gran Abs Auto 0.01 X10*3/uL (0.00-0.03); Imm Gran Pct Auto 0.2 % (0.0-0.4); Lymphocytes Absolute Auto 1.4 X10*3/uL (1.2-4.9); Lymphocytes Percent Auto 27.3 % (20-40); Mean Corpuscular HGB Conc 31.1 g/dl (31.0-35.0); Mean Corpuscular Hemoglobin 28.8 pg (27.0-33.0); Mean Corpuscular Volume 92.7 fL (80.0-98.0); Mean Platelet Volume 10.8 fL (9.4-12.3); Monocytes Absolute Auto 0.5 X10*3/uL (0.1-1.2); Monocytes Percent Auto 9.1 % (2-11); Neutrophils Absolute Auto 3.1 x10*3/uL (2.0-8.3); Neutrophils Percent Auto 57.7 % (45-73); Platelet Count 305 X10*3/uL (160-400); Red Blood Count 4.41 X10*6/uL (4.20-5.50); Red Cell Distribution Width 14.1 % (11.0-16.0); White Blood Count 5.3 X10*3/uL (4.8-10.8)
[2024-10-05 11:00] LABS: Alanine Aminotransferase 11 U/L (0-31); Albumin Level 4.4 g/dL (3.5-5.0); Alkaline Phosphatase 91 U/L (39-117); Anion Gap 11 (12-20); Aspartate Amino Transferase 26 U/L (5-31); Bilirubin Total 0.3 mg/dL (0.0-1.0); Blood Urea Nitrogen 10 mg/dL (9-16); Calcium 9.6 mg/dL (8.4-10.2); Carbon Dioxide 27 mmol/L (22-29); Chloride 109 mmol/L (96-108); Cholesterol 196 mg/dL (<200); Estimated Glomerular Filt Rate > 60; Glucose Fasting 89 mg/dL (60-99); HDL Cholesterol 68 mg/dL (>40); LDL Cholesterol Calculated 110 mg/dL (<100); Potassium 4.1 mmol/L (3.3-5.1); Sodium 143 mmol/L (135-145); Total Protein 7.4 g/dL (6.5-8.0); Triglycerides 94 mg/dL (<150)
[2024-10-05 11:06] LABS: Vitamin B12 447 pg/mL (200-900)
[2024-10-05 11:15] LABS: TSH reflex Free T4 2.22 uIU/mL (0.32-4.0)
[2024-10-08 01:22] LABS: TS Negative Control Passed; TS Panel A 0; TS Panel B 0; TS Positive Control Passed; TSpotTB Negative (Negative)
[2024-10-09 18:24] LABS: Vitamin D 25-OH, D2 <4 ng/mL; Vitamin D 25-OH, D3 34 ng/mL; Vitamin D 25-OH, Total 34 ng/mL (30-100)
[2024-10-09 23:18] LABS: Vitamin A 41 mcg/dL (38-98)
== END 2024-10-05 07:50 | disposition home or self-care (01) ==
LOC: HO.HMGCLDS 07:49
PROVIDERS: PCP Internal Medicine; Visit Provider Internal Medicine
DX: Z00.01 Encounter for general adult medical examination with abnormal findings (principal); M17.11 Unilateral primary osteoarthritis, right knee; Z11.1 Encounter for screening for respiratory tuberculosis; Z98.84 Bariatric surgery status; Z13.6 Encounter for screening for cardiovascular disorders
CPT/HCPCS: 36415; 80053; 80061; 82306; 82607; 84443; 84590; 85025; 86481

== ENCOUNTER 2024-11-18 09:05 | Outpatient (AMB) | payer OTHER, SELFPAY ==
--- NOTE | 2024-11-18 09:14 | AM.OFFWIN_ITS ---
Intake Vital Signs 11/18/24 09:15 11/18/24 09:20 Height 5 ft 10 in Weight 228 lb BMI 32.7 BP 106/64 102/64 Blood Pressure Location Lt brachial Rt brachial Position Sitting Sitting Pulse 77 Pulse Source Pulse Oximeter Temp 98.0 F Temp Source Oral Pulse Oximetry (%) 99 Oxygen Delivery Method Room Air Intake Visit Reasons: EP-Low BP Intake Note: presents with low blood pressure readings this week, sometimes has a bit of headache and dizziness Patient Tobacco Use Status: Never used Tobacco Allergies Iodinated Contrast Media (IV CONTRAST) Allergy (Intermediate, Verified 11/18/24 09:17) hives, redness, welts iodine (IODINE) Allergy (Intermediate, Verified 11/18/24 09:17) SKIN RASH, redness, welts, redness Medication List - Last Reconciled 11/18/24 by Fitz Ballard MD [id number] K 45 mg iron- 800 mcg-120 mcg (Bariatric Multivitamins) 1 cap PO DAILY omeprazole mg PO tirzepatide 2.5 mg subcut QWEEK ursodiol 500 mg PO BID Do you need a note to return to daycare/school/sports/work: Yes HPI EP-Low BP HPI Details History - The patient is a 59-year-old female pr esenting with low blood pressure, with readings as low as 80 mmHg systolic, associated with lightheadedness and dizziness. - The patient reported these symptoms ex acerbating over weekends, with noted improvement upon increasing fluid intake, specifically water. - The onset of decreased blood pressure began approximately four months ago, coinciding with the start of a weight management medication, Zepbound. - Historically, the patient's blood pres sure was slightly low, around 106-108 mmHg, until a marked decrease was observed since May. - Associated symptoms included intermitt ent headaches. - Additional factors contributing to low blood pressure may include reduced calorie intake due to an ongoing diet. - Discussion revealed past episodes of a systolic blood pressure decrease to 80 mmHg, resulting in feelings of generalized unwellness and lightheadedness. - Medication timing may also influence b lood pressure readings, with lower values noted at the end of the medication cycle. Medical History: - History of gastric bypass surgery with subsequent management considerations. - Recurrent ulcer formation post-gastric bypass. . Surgical History: - Gastric bypass surgery. Medications: - Zepbound for weight management. Social History: - The patient is currently engaged in a weight management program with [employer]. - Dieting has resulted in possibly inade quate caloric intake, which might contribute to low blood pressure. - Active measures include careful monito ring of fluid intake, focusing on proper hydration.. Problem List - Low blood pressure (Hypotension) - History of gastric bypass with associa rajni ulcer formation Patient Instructions - Monitor blood pressure regularly at [facility] using the available device. - Maintain adequate hydration and consid er increasing salt intake as discussed. - Monitor for symptoms of dizziness or l ightheadedness and seek care if blood pressure falls below 100 mmHg or if symptoms worsen. - Maintain balanced caloric intake despi te being on a diet, ensuring nutritional needs are met. - wait for cardiology appointment referr al is placed - consider discontinuation of Zepbound Review of Systems - General: No fever no chills - Neurological: No headaches no dizziness - Ear nose throat: No sore throat no hearing difficulty no ear pain - Cardiovascular: No syncope, no chest pain, no palpitations - Gastrointestinal: No nausea vomiting or diarrhea Physical Exam General: No acute distress HEENT: No acute findings Neck: Supple Respiratory system: Able to talk in full sentences, no audible wheeze Cardiovascular: S1-S2 regular in rate and rhythm Gastrointestinal: No pain Extremities: No swelling 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: Alert awake oriented x3 t Skin: Normal turgor PFSH Medical History Impetigo COVID-19 vaccine series completed PONV (postoperative nausea and vomiting) Anastomotic ulcer Shingles Hematuria Bone spur of left foot Cyst of left kidney BMI 30.0-30.9,adult Obesity (BMI 30-39.9) Malabsorption due to intolerance, not elsewhere classified Surgical History H/O elbow surgery H/O tubal ligation [place] teeth extracted H/O arthroscopy of left knee H/O: hysterectomy S/P gastric bypass Family History Father Cataract Skin cancer Mother HTN (hypertension) Anxiety Depression Obesity Smoker Sister Breast cancer Brother No problems noted. Sister No problems noted. Sister No problems noted. Sister No problems noted. Sister No problems noted. Daughter No problems noted. Daughter No problems noted. Daughter No problems noted. 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 Cognitive needs: No Hearing needs: No Vision needs: Yes Physical Exam Vital Signs: Last Vital Signs Temp 98.0 F 11/18/24 09:15 Pulse 77 11/18/24 09:15 BP 102/64 11/18/24 09:20 Pulse Ox 99 11/18/24 09:15 Oxygen Delivery Method Room Air 11/18/24 09:15 BMI result Body Mass Index 32.7 Assessment & Plan Assessment & Plan (1) Low blood pressure: Code(s): I95.9 - Hypotension, unspecified Qualifiers: Hypotension type: unspecified hypotension type Qualified Code(s): I95.9 - Hypotension, unspecified Plan History - The patient is a 59-year-old female presenting with low blood pressure, with readings as low as 80 mmHg systolic, associated with lightheadedness and dizziness. - The patient reported these symptoms exacerbating over weekends, with noted improvement upon increasing fluid intake, specifically water. - The onset of decreased blood pressure began approximately four months ago, coinciding with the start of a weight management medication, Zepbound. - Historically, the patient's blood pressure was slightly low, around 106-108 mmHg, until a marked decrease was observed since May. - Associated symptoms included intermittent headaches. - Additional factors contributing to low blood pressure may include reduced calorie intake due to an ongoing diet. - Discussion revealed past episodes of a systolic blood pressure decrease to 80 mmHg, resulting in feelings of generalized unwellness and lightheadedness. - Medication timing may also influence blood pressure readings, with lower values noted at the end of the medication cycle. Medical History: - History of gastric bypass surgery with subsequent management considerations. - Recurrent ulcer formation post-gastric bypass. . Surgical History: - Gastric bypass surgery. Medications: - Zepbound for weight management. Social History: - The patient is currently engaged in a weight management program with [employer]. - Dieting has resulted in possibly inadequate caloric intake, which might contribute to low blood pressure. - Active measures include careful monitoring of fluid intake, focusing on proper hydration.. Problem List - Low blood pressure (Hypotension) - History of gastric bypass with associated ulcer formation Patient Instructions - Monitor blood pressure regularly at home using the available device. - Maintain adequate hydration and consider increasing salt intake as discussed. - Monitor for symptoms of dizziness or lightheadedness and seek care if blood pressure falls below 100 mmHg or if symptoms worsen. - Maintain balanced caloric intake despite being on a diet, ensuring nutritional needs are met. - wait for cardiology appointment referral is placed - consider discontinuation of Zepbound Orders: Referrals Cardiology Referral I95.9 - Hypotension, unspecified Coding Level of Care Code Est Pt Level 4 (46119) Diagnoses Hypotension, unspecified hypotension type I95.9 Hypotension type: unspecified hypotension type
[2024-11-18 09:15] VITALS: BP 106/64; PULSE 77; TEMP 36.7; O2SAT 99; BMI 32.7
[2024-11-18 09:20] VITALS: BP 102/64
--- OUTSIDE RECORDS SUMMARY | 2024-11-18 09:33 | XMS_ITS | Clinical Summary ---
Author Organization [facility] Address [address] [facility] [address] [place] [address] Phone Care Team Providers Care Driller Machine Name Role Phone Fitz Ballard MD Primary Care Provider [phone] Allergies Active Allergy Reactions Criticality Noted Date [...] Colorectal Cancer Screening: Sigmoidoscopy 2014 Influenza Vaccine (#1) 2024 Insurance [facility] Care Teams Driller Machine Relationship Specialty Start Date End Date Fitz Ballard MD [place] [address] PCP - General Internal Medicine 04/24/21
== END 2024-11-18 09:56 | disposition home or self-care (01) ==
PROVIDERS: PCP Internal Medicine; Visit Provider Internal Medicine
DX: I95.9 Hypotension, unspecified (principal)

== ENCOUNTER 2025-01-21 08:04 | Outpatient (REF) | payer OTHER, SELFPAY ==
--- NOTE | ~2025-01-21 | MM_ITS ---
EXAMINATION: MM SCREENING DIGITAL BREAST TOMOSYNTHESIS, BILATERAL CLINICAL INFORMATION: Screening. Asymptomatic. COMPARISON: Comparison made to multiple prior, most recent January 16, 2024, and most remote November 25, 2017. TECHNIQUE: Digital breast tomosynthesis is performed in mediolateral oblique and craniocaudal views along with computer-aided detection (CAD). Synthesized 2D images are generated from the tomosynthesis. FINDINGS: BREAST COMPOSITION: There are scattered areas of fibroglandular density. BILATERAL BREASTS: No significant masses, suspicious calcifications or other abnormalities are seen in either breast. MM/MM tomosynthesis screening BI IMPRESSION: BILATERAL BREASTS: Negative, no mammographic evidence of malignancy. Normal interval follow-up is recommended in 12 months. ASSESSMENT: BI-RADS: Category 1: Negative RECOMMENDATION: Routine annual mammography screening. FOLLOW-UP: 1 year F/U This examination should not preclude the clinical evaluation of a suspicious palpable abnormality. This patient's information was entered into a reminder system with a target due date for their next mammogram. Electronically signed by: Mario Bruner MD 01/22/2025 07:47 PM EDT
--- OUTSIDE RECORDS SUMMARY | 2025-01-21 08:13 | XMS_ITS | Encounter Summary ---
Author Organization [facility] Address [address] [facility] [address] [place] [id number] Phone Care Team Providers Care Ichthyologist Name Role Phone Fitz Ballard MD Primary Care Provider [phone] Encounter Details Date Type Department Care Team (Late st Contact Info) Description 02/18/2024 Procedure Pass [facility] Endoscopy Department [address] [place] [id number] Social History Tobacco Use Types Packs/Day Years Used Date Smoking Tobacco: Never Smokeless Tobacco: Never Alcohol Use Standard Drinks/Week Comments Not Currently 0 (1 standard drink = 0.6 oz pur e alcohol) Education Answer Date Recorded Are you interested in more education? Not on lizeth e 01/18/2023 Are you concerned about learning? Not on file 01/18/2023 No 01/18/2023 No 01/18/2023 Digital Access Answer Date Recorded No 01/18/2023 No 01/18/2023 Reliable internet access at home? Not on file 01/18/2023 Device with a working camera? Not on file Intimate Partner Violence Answer Date R ecorded Are you denied basic needs s uch as food, clothing, or medical care? No 02/18/2024 In the past 12 months have y ou been in a relationship with a person who hurts, threatens, or tries to control you? No 02/18/2024 Are you denied basic needs s uch as food, clothing, or medical care? No 02/18/2024 In the past 12 months have y ou been in a relationship with a person who hurts, threatens, or tries to control you? No 02/18/2024 Comments Unknown Sex and Gender Information Value Date Recorded Sex Assigned at Female 10/18/2023 10:10 AM EDT Legal Sex Female 9:35 AM EDT Gender Identity Female 10/18/2023 10:10 AM EDT Sexual Orientation Straight 10/18/2023 10 :10 AM EDT documented as of this encounter Plan of Treatment Not on file documented as of this encounter Visit Diagnoses Not on filedocumented in this encounter Care Teams Ichthyologist Relationship Specialty Start Date End Date Fitz Ballard MD [address] [place] [address] PCP - General Internal Medicine 01/18/23 documented as of this encounter Additional Source Comments The information contained in this document represents components of the legal health record. It is not the complete legal health record.[facility]
--- OUTSIDE RECORDS SUMMARY | 2025-01-21 08:13 | XMS_ITS | Clinical Summary ---
Author Organization [facility] Address [address] [facility] [address] [place] [address] Phone Care Team Providers Care Buildings And Grounds Superintendent Name Role Phone Fitz Ballard MD Primary Care Provider [phone] Allergies Active Allergy Reactions Criticality Noted Date [...] Body mass index 30+ - obesity <39.0-39.9> 12/30/ 2021 Postoperative nausea and vomiting 04/27/2021 Herpes zoster [...] Sigmoidoscopy 2014 Influenza Vaccine (#1) 2024 Insurance [facility] Care Teams Buildings And Grounds Superintendent Relationship Specialty Start Date End Date Fitz Ballard MD [address] [place], [place] [id number] PCP - General Internal Medicine 04/24/21
--- OUTSIDE RECORDS SUMMARY | 2025-01-21 08:13 | XMS_ITS | Clinical Summary ---
Author Organization [facility] Address [address] [place] [phone] Phone Care Team Providers Care Tree Puller Name Role Phone Fitz Ballard MD Primary Care Provider [phone] Allergies Active Allergy Reactions Criticality Noted Date Comments Iodinated Contrast Media Hives,Rash Low 04/27/2021 Iodine Rash Low 04/27/2021 Other 04/27/2021 IVP Dye Allergy--which gives redness and welts Medications ferrous sulfate 325 mg (65 mg deering iron) tablet Take 1 tablet by mouth every morning. 3 Active sucralfate (CARAFATE) 100 mg/mL suspension Take 1 g by mouth. 3 Active therapeutic multivitamin tablet Take 1 tablet by mouth daily. Active semaglutide, weight loss, (WEGOVY) 0.25 mg/0.5 mL subcutaneous pen injectionIndicati ons:Class 2 severe obesity with serious comorbidity and body mass index (BMI) of 35.0 to 35.9 in adult, unspecified obesity type Inject 0.5 mL (0.25 mg total) under the skin every 7 days for 4 doses. 2 mL 4 Active omeprazole (PRILOSEC) 40 MG capsule TAKE 1 CAPSULE BY MOUTH TWICE A DAY 180 capsule 3 5 Active ursodioL (ACTIGALL) 500 MG tablet TAKE 1 TABLET BY MOUTH TWICE A DAY WITH MEALS 180 tablet 5 Active Active Problems Problem Noted Date Diagnosed Date Class 1 obesity 11/26/2023 Malabsorption due to intolerance, not elsewhere classified 04/27/2021 Peptic anastomotic ulcer 04/27/2021 Postoperative nausea and vomiting 04/27/2021 Encounters Date Type Department Care Team Description 11/08/2024 Refill [facility] [address] [facility] [place] [address] Dwayne Mcdonald MD Medication Refill from Last 3 Months Social History Tobacco Use Types Packs/Day Years Used Date Smoking Tobacco: Never Smokeless Tobacco: Never Tobacco Cessation:Counseling Given: Not Answered Alcohol Use Standard Drinks/Week Comments Not Currently [...] Orientation Straight 10/18/2023 10 :10 AM EDT Last Filed Vital Signs Vital Sign Reading Time Taken Comments Blood Pressure 102/53 02/18/2024 9:26 AM EDT Pulse 75 02/18/2024 9:11 AM EDT Temperature 36.7 C (98.1 F) 02/18/2024 9:11 AM EDT Respiratory Rate 16 02/18/2024 9:26 AM EDT Oxygen Saturation 99% 02/18/2024 9:11 AM EDT Inhaled Oxygen Concentration - - Weight 110.7 kg (244 lb) 06/02/2024 5:15 PM EST Height 175.3 cm (5' 9.02 ) 06/02/2024 5:15 PM ES T Body Mass Index 36.02 06/02/2024 5:15 PM EST Plan of Treatment Health Maintenance Due Date Last Done Comments Adult Td,Tdap Booster 1965 DEPRESSION SCREENING 1977 HEPATITIS C SCREENING 1983 HIV ONE-TIME SCREENING (18-6 5 YEARS) 1983 PAP SMEAR 1986 MAMMOGRAM 2005 COLOGUARD 2010 COLONOSCOPY 2010 COLORECTAL CANCER SCREENING 2010 FIT TEST 2010 FOBT 2010 SIGMOIDOSCOPY 2010 VIRTUAL COLONOSCOPY 2010 PNEUMOCOCCAL VACCINES (50+ years) (1 of 1 - PCV) 2015 ZOSTER VACCINES (1 of 2) 2015 INFLUENZA VACCINE (#1) 2024 COVID-19 VACCINE (2024-2 6 season) 2024 05/06/2021, 08/10/2020, 07/12/2020 SCREENING FOR DIABETES 12/17/2026 , 12/18/2023 LIPID PANEL 12/17/2028 12/18/2023 SMOKING STATUS SCREENING (On ce After 26 Yrs) Completed 02/18/2024 HEPATITIS A VACCINES Aged Out No long er eligible based on patient's age to complete this topic HIB VACCINES Aged Out No longer eligi ble based on patient's age to complete this topic MENINGOCOCCAL VACCINES (ACWY) Aged Out No longer eligible based on patient's age to complete this topic MENINGOCOCCAL VACCINES (B) Aged Out N o longer eligible based on patient's age to complete this topic Medical Devices Implanted Type Area [employer] Device Identifier Shelf Expiration Date Model / Serial / Lot Knee Replacement Procedures Procedure Name Priority Date/Time Associated Diagnosis Comments LIPID PANEL Routine 12/18/2023 8:54 AM EDT Class 2 severe obesity with serious comorbidity and body mass index (BMI) of 35.0 to 35.9 in adult, unspecified obesity type from Last 3 Months or Most Recently Relevant to Health Maintenance Results * (ABNORMAL) Lipid panel (12/18/2023 8:54 AM EDT) HDL 74 mg/dL [facility] Comment: Interpretation <40 mg/dL: Low HDL cholesterol (major risk factor for CHD) Greater than or equal to 60 mg/dL: High HDL cholesterol ( negative risk factor for CHD) HDL - cholesterol is affected by a number of factors, e.g. smoking, excerise, hormones, sex and age. CHOLESTEROL 202 0 - 240 mg/dL [facility] TRIGLYCERIDES 92 30 - 160 mg/dL [facility] LDL 110 50 - 129 mg/dL [facility] Comment: LDL levels in terms of risk for coronary heart disease: <100 mg/dL: Optimal 100-129 mg/dL: Near or above optimal 130-159 mg/dL: Borderline high 160-189 mg/dL: High >190 mg/dL: Very High CARDIAC RISK RATIO 2.7(L) 3.3 - 4.4 C [facility] Blood 12/18/2023 8:54 AM EDT 12/18/2023 9:10 AM EDT us Osiris Edmonds PA-C LAB BLOOD ORDERABLES F inal Result [facility] [address] [place] [address] from Last 3 Months or Most Recently Relevant to Health Maintenance Insurance [facility] Care Teams Tree Puller Relationship Specialty Start Date End Date Fitz Ballard MD [address] [place] [address] PCP - General Internal Medicine 01/18/23 Additional Source Comments The information contained in this document represents components of the legal health record. It is not the complete legal health record.[facility]
== END 2025-01-21 08:05 | disposition home or self-care (01) ==
LOC: HO.MAMMO 08:04
PROVIDERS: PCP Internal Medicine; Visit Provider Internal Medicine
DX: Z12.31 Encounter for screening mammogram for malignant neoplasm of breast (principal)
CPT/HCPCS: 77063; 77067

== ENCOUNTER → 2025-01-21 08:30 | Outpatient (BNV) | payer OTHER, SELFPAY | PROVIDERS: PCP Internal Medicine; Visit Provider Radiology Body Imaging | DX: Z12.31 Encounter for screening mammogram for malignant neoplasm of breast (principal) | CPT/HCPCS: 77063; 77067 ==

== ENCOUNTER 2025-03-18 08:55 | Outpatient (AMB) | payer OTHER, SELFPAY ==
--- NOTE | 2025-03-18 08:59 | MHC.OFFVIS ---
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 Intake Note: New patient Hypotension has alway been on the low side maybe connected to weight loss Facility Environmental Technician Required: No Allergies Iodinated Contrast Media (IV CONTRAST) Allergy (Intermediate, Verified 11/18/24 09:17) hives, redness, welts iodine (IODINE) Allergy (Intermediate, Verified 11/18/24 09:17) SKIN RASH, redness, welts, redness Medication List - Last Reconciled 03/18/25 by Mario Hook MD [id number] K 45 mg iron- 800 mcg-120 mcg (Bariatric Multivitamins) 1 cap PO DAILY omeprazole 40 mg PO tirzepatide 12 mg subcut QWEEK ursodiol 500 mg PO BID PRN HPI Comments Details: Reva was referred here for management of low blood pressure as well as symptoms of lightheadedness. Patient is a 59-year-old female with prior history of bariatric surgery many years ago, in 2021 she had bowel perforation leading to multiple admissions for sepsis. However since then she has been doing well. About 8 months ago she started treatment with GLP 1 antagonist the bed-bound in his lost about 60 lb. Prior to that she used to run low blood pressures but the low blood pressure has been more prominent since her losing weight. She does have occasional symptoms of lightheadedness. She denies any prolonged palpitation irregular heartbeat. Denies any exertional chest pain or shortness of breath. No orthopnea, PND, leg edema. She does not drink enough fluid in the day and drinks about 40 oz. She says she also has only recently started increase salt intake. She had completely eliminated salt in his diet. She has been intermittently going for IV therapies and said this makes her feel better. She has not syncopal episodes. [facility] Medical History Impetigo COVID-19 vaccine series completed PONV (postoperative nausea and vomiting) Anastomotic ulcer Shingles Hematuria Bone spur of left foot Cyst of left kidney BMI 30.0-30.9,adult Obesity (BMI 30-39.9) Malabsorption due to intolerance, not elsewhere classified Surgical History H/O elbow surgery H/O tubal ligation [place] teeth extracted H/O arthroscopy of left knee H/O: hysterectomy S/P gastric bypass Family History Father Cataract Skin cancer Mother HTN (hypertension) Anxiety Depression Obesity Smoker Sister Breast cancer Brother No problems noted. Sister No problems noted. Sister No problems noted. Sister No problems noted. Sister No problems noted. Daughter No problems noted. Daughter No problems noted. Daughter No problems noted. 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 Cognitive needs: No Hearing needs: No Vision needs: Yes Review of Systems Const Denies chills, Denies daytime sleepiness, Reports fatigue, Denies fever(s), Denies frequent falls, Reports poor appetite, Denies snoring, Denies stops breathing during sleep, Denies weakness, Denies weight gain and Reports weight loss Eyes Denies loss of vision ENT Reports dizziness and Denies hearing loss Card Denies chest pain, Reports claudication, Reports leg edema, Reports lightheadedness, Denies palpitations, Denies dyspnea, Denies dyspnea on exertion and Denies orthopnea Resp Denies cough, Denies excessive phlegm production, Denies dyspnea, Denies dyspnea on exertion, Denies snoring and Denies wheezing GI Denies abdominal pain, Denies hematochezia, Denies change in bowel habits, Denies nausea and Denies vomiting Denies urinary frequency and Denies dysuria Musc Denies arthralgias, Reports muscle weakness and Denies numbness Skin/Breast Denies nail changes and Denies rash Neuro Denies Abnormal speech present, Reports dizziness, Denies frequent falls, Denies loss of vision, Denies memory loss, Denies numbness and Denies weakness Psych Denies depression and Denies memory loss Endo Reports fatigue and Denies palpitations Bahman/Lymph Reports easy bruising and Reports other (anemia) Aller/Immun Denies wheezing Physical Exam Vital Signs: Last Vital Signs Pulse 88 03/18/25 09:16 BP 113/56 L 03/18/25 09:16 BMI result Body Mass Index 29.7 Const General: cooperative, comfortable, no acute distress, alert, awake and Physically active Nutritional Appearance: overweight Orientation/consciousness: patient oriented x3 Limitations: no limitations HEENT Head: Yes normocephalic and Yes atraumatic Neck Neck: Yes trachea midline, Yes supple and Yes no JVD Resp Effort & Inspection: normal respiratory effort Auscultation: clear to auscultation bilaterally Cardio Jugular venous distension: no JVD Rate: regular rate Rhythm: regular rhythm Heart sounds: S1 normal heart sound present, S2 normal heart sound present, no click, no gallops, no murmurs and no rubs GI Auscultation: normal bowel sounds Skin General skin exam: no rashes or lesions noted Neuro General: patient oriented x3 and no focal motor deficits Speech: No Abnormal speech present Extrem General: Yes no clubbing, cyanosis or edema Office Procedures EKG Details: EKG shows normal sinus rhythm with poor R-wave progression due to body habitus and lead placement as well as occasional PVCs [id number], Complete Assessment & Plan Assessment & Plan (1) Low blood pressure: Code(s): I95.9 - Hypotension, unspecified Category: Medical Qualifiers: Hypotension type: unspecified hypotension type Qualified Code(s): I95.9 - Hypotension, unspecified Plan: Low blood pressure with some symptoms of lightheadedness overall but has had low blood pressure for long period of time, exacerbated by her recent weight loss. Question some component of dysautonomia. However management of low blood pressure was discussed. She has reduced overall fluid intake as well as salt intake I think initial treatment should focus on increasing her water intake to 64 and eventually to 80 oz and gradually increase her salt intake to 2-3 g a day. Management was discussed. Orthostatic precautions were discussed. I would avoid any other pharmacotherapy at this point in time. (2) PVC (premature ventricular contraction): Code(s): I49.3 - Ventricular premature depolarization Category: Medical Plan: PVCs noted on EKGs without any obvious symptoms. Will suggest a Holter monitor to assess for frequency of PVCs to guide treatment. Also suggest an echocardiogram to assess for cardiac structure and function. Further treatment based on the findings. Avoidance of stimulants was discussed. Stress mitigation strategies were discussed. Will follow up in the clinic in 6 weeks time, sooner PRN. Thank you for allowing me to partake in her care Orders: Orders CA echo transthoracic complete Today I95.9 - Hypotension, unspecified ECG 3 day holter monitor Today I49.3 - Ventricular premature depolarization Coding Level of Care Code New Pt Level 4 (93417) Complex EM visit Add On G2211 Diagnoses Hypotension, unspecified hypotension type I95.9 Hypotension type: unspecified hypotension type PVC (premature ventricular contraction) I49.3 CPT Codes EKG - CPT: 02905-[id number], Complete ([id number])
[2025-03-18 09:00] VITALS: BP 116/64; PULSE 76; BMI 29.7
[2025-03-18 09:14] VITALS: BP 96/51; PULSE 81
[2025-03-18 09:15] VITALS: BP 97/55; PULSE 84
[2025-03-18 09:16] VITALS: BP 113/56; PULSE 88
--- OUTSIDE RECORDS SUMMARY | 2025-03-18 10:43 | XMS_ITS | Encounter Summary ---
Author Organization [facility] Address [address] [place] [address] Phone Care Team Providers Care Radius Grinder Name Role Phone Fitz Ballard MD Primary Care Provider [phone] Encounter Details Date Type Department Care Team (Late st Contact Info) Description 02/18/2024 Procedure Pass [facility] Endoscopy Department [address] [place] [id number] Social History Tobacco Use Types Packs/Day Years [...] on filedocumented in this encounter Care Teams Radius Grinder Relationship Specialty Start Date End Date Fitz Ballard MD [address] [facility] [place] [address] PCP - General Internal Medicine 01/18/23 documented as of this encounter Additional Source Comments The information contained in this document represents components of the legal health record. It is not the complete legal health record.[facility]
--- OUTSIDE RECORDS SUMMARY | 2025-03-18 10:44 | XMS_ITS | Encounter Summary ---
Author Organization [facility] Address [address] [place] [address] Phone Care Team Providers Care Panel Machine Operator Name Role Phone Fitz Ballard MD Primary Care Provider [phone] Reason for Visit * Reason Comments Medication Refill Encounter Details Date Type Department Care Team ([facility] st Contact Info) Description 02/04/2025 Refill [facility] Specialties [address] [facility] [place] [address] Dwayne Mcdonald MD [address] [place] [id number] [email or web address] Medication Refill Social History Tobacco Use Types Packs/Day Years [...] on filedocumented in this encounter Care Teams Panel Machine Operator Relationship Specialty Start Date End Date Fitz Ballard MD [address] [place] [address] [place] [address] PCP - General Internal Medicine 01/18/23 documented as of this encounter Additional Source Comments The information contained in this document represents components of the legal health record. It is not the complete legal health record.[facility]
--- OUTSIDE RECORDS SUMMARY | 2025-03-18 10:44 | XMS_ITS | Clinical Summary ---
Author Organization [facility] Address [address] [place] [address] Phone Care Team Providers Care Radiation Therapist Name Role Phone Fitz Ballard MD Primary Care Provider [phone] Allergies Active Allergy Reactions Criticality Noted Date Comments Iodinated Contrast Media Hives,Rash Low 04/27/2021 Iodine Rash Low 04/27/2021 Other 04/27/2021 IVP Dye Allergy--which gives redness and welts Medications ferrous sulfate 325 mg (65 mg [facility] iron) tablet Take 1 tablet by mouth [...] Encounters Date Type Department Care Team Description 02/04/2025 Refill [facility] Specialties [address] [facility] [place] [address] Dwayne Mcdonald MD Medication Refill from Last [...] 2015 INFLUENZA VACCINE (#1) 2024 COVID-19 VACCINE (4 - 2024-2 6 season) 2024 05/06/2021, 08/10/2020, 07/12/2020 SCREENING FOR DIABETES 12/17/2026 , 12/18/2023 LIPID PANEL 12/17/2028 12/18/2023 RSV VACCINE (1 - 1-dose 75+ series) 2040 SMOKING STATUS SCREENING (On ce After 26 [...] this topic Medical Devices Implanted Type Area Rock Dust Sprayer Device Identifier Shelf Expiration Date Model / [...] (12/18/2023 8:54 AM EDT) HDL 74 mg/dL [facility] Comment: Interpretation <40 mg/dL: Low HDL cholesterol (major risk factor for CHD) Greater than or equal to 60 mg/dL: High HDL cholesterol ( negative risk factor for CHD) HDL - cholesterol is affected by a number of factors, e.g. smoking, excerise, hormones, sex and age. CHOLESTEROL 202 0 - 240 mg/dL [facility] TRIGLYCERIDES 92 30 - 160 mg/dL [facility] LDL 110 50 - 129 mg/dL [facility] Comment: LDL levels in terms of risk for coronary heart disease: <100 mg/dL: Optimal 100-129 mg/dL: Near or above optimal 130-159 mg/dL: Borderline high 160-189 mg/dL: High >190 mg/dL: Very High CARDIAC RISK RATIO 2.7(L) 3.3 - 4.4 C [facility] Blood 12/18/2023 8:54 AM EDT 12/18/2023 9:10 AM EDT us Osiris Edmonds PA-C LAB BLOOD BKR ORDERABL ES Final Result [address] [address] from Last 3 Months or Most Recently Relevant to Health Maintenance [facility] S S S Care Teams Radiation Therapist Relationship Specialty Start Date End Date Fitz Ballard MD [address] [place] [address] PCP - General Internal Medicine 01/18/23 Additional Source Comments The information contained in this document represents components of the legal health record. It is not the complete legal health record.[facility]
== END 2025-03-18 09:38 | disposition home or self-care (01) ==
LOC: HO.HCS 08:56
PROVIDERS: PCP Internal Medicine; Visit Provider Internal Medicine Cardiovascular Disease
DX: I95.9 Hypotension, unspecified (principal); I49.3 Ventricular premature depolarization
CPT/HCPCS: 93010; 99204; G2211

== ENCOUNTER → 2025-03-18 08:55 | Outpatient (BNVA) | payer OTHER, SELFPAY | PROVIDERS: PCP Internal Medicine; Visit Provider Internal Medicine Cardiovascular Disease | DX: I49.3 Ventricular premature depolarization (principal) | CPT/HCPCS: 93005 ==

== ENCOUNTER → 2025-04-26 10:43 | Outpatient (REF) | payer OTHER, SELFPAY ==
--- NOTE | 2025-04-26 10:46 | CA_ITS ---
Transthoracic Echocardiogram Patient (Last, First, Middle): Reva Bey A Gender: F Date of : 1965 Age: 59 Procedure Date: 04/26/2025 Procedure Type: Transthoracic Echocardiogram Location: OP Height: 177.8 cm Weight: 93.9 kg BSA: 2.12 m2 Heart Rate: bpm BP: 116 / 64 mmHg Seater Assembler: AMANDA Referring MD: Mario Hook MD Symptoms: I95.9 - Hypotension, unspecified Study Quality: Adequate ECG Rhythm: Sinus Conclusions: - The left ventricular systolic function is mildly decreased. The visually estimated ejection fraction is between 45-50%. - No obvious valvular pathology seen on this study. Findings Left Ventricle Moderately increased left ventricular cavity size. There is normal left ventricular wall thickness. The left ventricular systolic function is mildly decreased. The visually estimated ejection fraction is between 45-50%. There is mild global hypokinesis. Diastolic function is normal for age. LV peak GLS -16.4%. Right Ventricle Normal right ventricular cavity size and systolic function. Atria Both atria are normal in size. Aortic Valve There is a normal trileaflet aortic valve. There is no aortic valve stenosis. There is no aortic valve regurgitation. Mitral Valve The mitral valve appears normal. There is trace mitral valve regurgitation. There is no mitral valve stenosis. Pulmonic Valve The pulmonic valve is likely normal. Tricuspid Valve There is mild tricuspid valve regurgitation. There is no evidence of pulmonary hypertension. Great Vessels The asc aorta and aortic arch are normal in size. Venous The inferior vena cava is normal in size and collapses greater than 50% with inspiration. Pericardium/Pleural There is no evidence of pericardial effusion. Prior Study Comparison No prior study available for comparison. Recommendations, Care & Conclusions No obvious valvular pathology seen on this study. Measurements 2D Linear Measurements IVSd: 0.68 0.6-0.9/0.6-1.0 cm LVIDd: 5.91 3.9-5.3/4.2-5.9 cm LVIDd Index: 2.79 2.4-3.2/2.2-3.1 cm/m2 LVIDs: 4.37 2.0-3.6 cm LVPWd: 0.80 0.7-1.1 cm LA Diam: 3.80 2.7-3.8/3.0-4.0 cm LAIDs Index: 1.79 1.5-2.3 cm/m2 LV Mass: 204.19 67-162/88-224 g LV Mass Index: 96.32 43-95/49-115 g/m2 LVOT Diam: 2.30 3.0+(-)1.3 cm 2D Systolic Function EF 4C: 53.40 >55% EF 2C: 55.90 >55% EF BiP: 55.80 >55% Mitral Valve MV Pk E: 0.69 MV PK A: 0.58 MV Decel Time: 227.00 E/A: 1.20 E'Lateral: 10.70 E'Medial: 8.49 E/E' Med: 8.10 E/E' Lat: 6.40 PHT: 66.00 MVA PHT: 3.33 Decel [place]: 3.04 Aortic Valve AoV Pk Gonzalo: 1.28 AoV Mn Gonzalo: 0.93 AoV VTI: 0.30 AoV Pk Grad: 7.00 Aov Mn Grad: 4.00 OLVIN Cont.VTI: 2.94 LVOT LVOT Pk Gonzalo: 0.96 LVOT Mn Gonzalo: 0.65 LVOT VTI: 0.21 LVOT Pk Grad: 4.00 LVOT Mn Grad: 2.00 LVOT Diam: 2.30 LVOT Area: 4.15 Diastolic Function MV Pk E: 0.69 MV Pk A: 0.58 E/A: 1.20 E'Medial: 8.49 E/E' Med: 8.10 E' Laterial: 10.70 E/E' Lat: 6.40 Right Ventricle TAPSE (mm): 23.90 TVS' Gonzalo: 12.80 Tricuspid Valve TR Pk Gonzalo: 2.30 TR Pk Grad: 21.00 RA Press: 3.00 RVSP: 24.00 Great Vessels Aorta Sinus of Valsalva: 3.11 2.0-3.5 cm Ao Asc: 3.00 2.1-3.4 cm Ao Arch: 3.10 Pulmonary Veins Pulm Vein S/D 1.00 Updated in Other Vendor System with Status of Final Pepe Blake MD electronically signed on 04/26/2025 12:42:49 PM with status of Final
--- OUTSIDE RECORDS SUMMARY | 2025-04-26 12:17 | XMS_ITS | Encounter Summary ---
Author Organization [facility] Address [address] [facility] [address] [place] [address] Phone Care Team Providers Care Cream Maker Name Role Phone Fitz Ballard MD Primary Care Provider [phone] Encounter Details Date Type Department Care Team (Late st Contact Info) Description 02/18/[address] [facility] Endoscopy Department [address] [place] [address] Social History Tobacco Use Types Packs/Day Years [...] on filedocumented in this encounter Care Teams Cream Maker Relationship Specialty Start Date End Date Fitz Ballard MD [address] [facility] [place] [address] PCP - General Internal Medicine 01/18/23 documented as of this encounter Additional Source Comments The information contained in this document represents components of the legal health record. It is not the complete legal health record.[facility]
--- OUTSIDE RECORDS SUMMARY | 2025-04-26 12:17 | XMS_ITS | Encounter Summary ---
Author Organization [facility] Address [address] [place] [address] Phone Care Team Providers Care Black Oxide Operator Name Role Phone Fitz Ballard MD Primary Care Provider [phone] Reason for Visit * Reason Comments Medication Refill Encounter Details Date Type Department Care Team ([facility] Contact Info) Description 02/04/2025 Refill [facility] [address] [place] [address] Dwayne Mcdonald MD [address] [place] [phone] [email or web address] Medication Refill Social History Tobacco Use Types [...] on filedocumented in this encounter Care Teams Black Oxide Operator Relationship Specialty Start Date End Date Fitz Ballard MD [facility] [place] [address] PCP - General Internal Medicine 01/18/23 documented as of this encounter Additional Source Comments The information contained in this document represents components of the legal health record. It is not the complete legal health record.[facility]
--- OUTSIDE RECORDS SUMMARY | 2025-04-26 12:17 | XMS_ITS | Clinical Summary ---
Author Organization [facility] Address [address] [place] [address] Phone Care Team Providers Care Community Coordinator For High School Name Role Phone Fitz Ballard MD Primary Care Provider [phone] Allergies Active Allergy Reactions Criticality Noted Date Comments Iodinated Contrast Media Hives,Rash Low 04/27/2021 Iodine Rash Low 04/27/2021 Other 04/27/2021 IVP Dye Allergy--which gives redness and welts Medications ferrous sulfate 325 mg (65 mg [place] iron) tablet Take 1 tablet by mouth [...] Type Department Care Team Description 02/04/2025 Refill [facility] [address] [address] [place] [address] Dwayne Mcdonald MD Medication Refill from Last [...] 2015 INFLUENZA VACCINE (#1) 2024 COVID-19 VACCINE ( - 2024-2 6 season) 2024 05/06/2021, 08/10/2020, [...] this topic Medical Devices Implanted Type Area Medical Engineer Device Identifier Shelf Expiration Date Model / [...] (12/18/2023 8:54 AM EDT) HDL 74 mg/dL [facility] Comment: Interpretation <40 mg/dL: Low HDL cholesterol (major risk factor for CHD) Greater than or equal to 60 mg/dL: High HDL cholesterol ( negative risk factor for CHD) HDL - cholesterol is affected by a number of factors, e.g. smoking, excerise, hormones, sex and age. CHOLESTEROL 202 0 - 240 mg/dL [facility] TRIGLYCERIDES 92 30 - 160 mg/dL [facility] LDL 110 50 - 129 mg/dL [facility] Comment: LDL levels in terms of risk for coronary heart disease: <100 mg/dL: Optimal 100-129 mg/dL: Near or above optimal 130-159 mg/dL: Borderline high 160-189 mg/dL: High >190 mg/dL: Very High CARDIAC RISK RATIO 2.7(L) 3.3 - 4.4 C [facility] Blood 12/18/2023 8:54 AM EDT 12/18/2023 9:10 AM EDT us Osiris Edmonds PA-C LAB BLOOD BKR ORDERABL ES Final Result [facility] [address] [place] [address] from Last 3 Months or Most Recently Relevant to Health Maintenance Insurance [facility] S S S Care Teams Community Coordinator For High School Relationship Specialty Start Date End Date Fitz Ballard MD [address] [facility] [place] [address] PCP - General Internal Medicine 01/18/23 Additional Source Comments The information contained in this document represents components of the legal health record. It is not the complete legal health record.[facility]
--- OUTSIDE RECORDS SUMMARY | 2025-04-26 12:18 | XMS_ITS | Clinical Summary ---
Author Organization [facility] Address [address] [facility] [address] [place] [address] Phone Care Team Providers Care Clinical Practitioner Name Role Phone Fitz Ballard MD Primary Care Provider [phone] Allergies Active Allergy Reactions Criticality Noted Date [...] of 3 - 19+ 3-dose series) 06/26 Colorectal Cancer Screening: Annual FOBT 2014 Colorectal Cancer Screening: Colonoscopy 2014 Colorectal Cancer Screening: Sigmoidoscopy 2014 Pneumococcal Vaccine: 50+ Years (1 of 1 - PCV) 016 Influenza Vaccine (#1) 2024 Insurance [facility] Care Teams Clinical Practitioner Relationship Specialty Start Date End Date Fitz Ballard MD [facility] [place] [address] PCP - General Internal Medicine 04/24/21
== END ==
LOC: HO.CARD 10:43
PROVIDERS: PCP Internal Medicine; Visit Provider Internal Medicine Cardiovascular Disease
DX: I49.3 Ventricular premature depolarization (principal); I95.9 Hypotension, unspecified
CPT/HCPCS: 93242; 93306

== ENCOUNTER → 2025-04-26 10:46 | Outpatient (BNV) | payer OTHER, SELFPAY | PROVIDERS: PCP Internal Medicine; Visit Provider Internal Medicine | DX: I95.9 Hypotension, unspecified (principal) | CPT/HCPCS: 93306 ==